=== PATIENT | male | born 1980 | race Caucasian/White ===

== ENCOUNTER 2016-07-05 11:19 | Inpatient (IN) | payer SELFPAY ==
--- NOTE | 2016-07-05 11:28 | C.PDOC ---
History Of Present Illness 35-year-old male, presents to the emergency department with complaints of suicidal ideation. Patient states he is having "negative thoughts." States his plan is to over dose "on Heroin or pills." Patient states he uses Heroin(last use this morning), Cocaine, PCP(last use two weeks ago) and alcohol (last drink this morning). Patient notes he has a Hx of suicide attempt in the past (two years ago). Currently denies any physical complaints. No chest pain, headache, vomiting, or any other associated symptoms. Time Seen by Provider: 07/05/16 11:27 Chief Complaint (Nursing): Psychiatric Evaluation Past Medical History Reviewed: Historical Data, Nursing Documentation, Vital Signs Vital Signs: Last Vital Signs Temp 98.1 F 07/05/16 18:23 Pulse 84 07/05/16 18:23 Resp 20 07/05/16 18:23 BP 128/68 07/05/16 18:23 Pulse Ox 98 07/05/16 18:23 Family History: States: No Known Family Hx - Social History Hx Alcohol Use: Yes Hx Substance Use: Yes (heroin) - Immunization History Hx Tetanus Toxoid Vaccination: No (2016) Hx Influenza Vaccination: No Hx Pneumococcal Vaccination: No Review Of Systems Except As Marked, All Systems Reviewed And Found Negative. Constitutional: Negative for: Fever, Chills Cardiovascular: Negative for: Chest Pain Gastrointestinal: Negative for: Nausea, Vomiting Neurological: Negative for: Weakness, Numbness Psych: Positive for: Suicidal ideation Physical Exam - Physical Exam Appears: Non-toxic, No Acute Distress, Other (FLAT AFFECT. NO SIGNS OR SYMPTOMS OF ACUTE INTOX/WITHDRAWAL. PT CALM AND COOPERATIVE.) Skin: Warm, Dry, No Rash Head: Atraumatic Eye(s): bilateral: Normal Inspection Nose: Normal Oral Mucosa: Moist Lips: Normal Appearing Neck: Normal ROM Chest: Symmetrical Respiratory: No Accessory Muscle Use Extremity: Normal ROM Neurological/Psych: Oriented x3 ED Course And Treatment - Laboratory Results Result Diagrams: 07/05/16 12:24 07/05/16 12:24 O2 Sat by Pulse Oximetry: 97 Progress - Data Reviewed Data Reviewed: Lab, Diagnostic imaging, EKG, Old records ED OBSERVATION Date of observation admission: 07/05/16 Time of observation admission: 11:25 - Observation admission statement Patient is being placed in observation because:: SUICIDAL IDEATION HO DRUG ABUSE - Goals of Observation Goals of observation are:: SOBRIETY MED CLEAR PSYCH EVAL - Progress Note Progress Note: 07/05/16 11:28 D/W CRISIS RUTH 07/05/16 13:12 MED CLEAR FOR PSYCH EVAL. CRISIS NOTIFIED 07/05/16 14:30 Disposition Counseled Patient/Family Regarding: Studies Performed, Diagnosis - Disposition Disposition: HOSPITALIZED Disposition Time: 17:30 Condition: STABLE - Clinical Impression Clinical Impression: Depression, Drug abuse - Scribe Statement The provider has reviewed the documentation as recorded by the Scribdeidra Bocanegra All medical record entries made by the Scribe were at my direction and personally dictated by me. I have reviewed the chart and agree that the record accurately reflects my personal performance of the history, physical exam, medical decision making, and the department course for this patient. I have also personally directed, reviewed, and agree with the discharge instructions and disposition. Decision To Admit - Pt Status Changed To: Hospital Disposition Of: Inpatient - Admit Certification Admit to Inpatient:: After my assessment, the patient will require hospitalization for at least two midnights. This is because of the severity of symptoms shown, intensity of services needed, and/or the medical risk in this patient being treated as an outpatient. - InPatient: Physician Admission Certification: I certify that this patient requires 2 or more midnights of care for the following reason:: SEE NOTE - . Bed Request Type: Psychiatry Admitting Physician: Vinny Centeno Patient Diagnosis: Depression, Drug abuse
[2016-07-05 12:37] LABS: BASO % 0.9 % (0.0-2.0); EOS # 0.1 K/uL (0.0-0.7); EOS % 1.7 % (0.0-4.0); LYMPH # 1.1 K/uL (1.0-4.3); LYMPH % 22.5 % (20.0-40.0); MEAN CELL VOLUME 89.7 fL (80.0-94.0); MEAN CORPUSCULAR HEMOGLOBIN 30.9 pg (27.0-31.0); MEAN CORPUSCULAR HGB CONC 34.4 g/dL (33.0-37.0); MEAN PLATELET VOLUME 8.1 fL (7.2-11.7); MONO # 0.3 K/uL (0.0-0.8); MONO % 7.1 % (0.0-10.0); NRBC % 0.1 % (0.0-2.0); RED CELL DISTRIBUTION WIDTH 12.7 % (11.5-14.5); WHITE BLOOD COUNT 4.9 K/uL (4.8-10.8)
[2016-07-05 12:40] LABS: RBC URINE < 1 /hpf (0-3); URINE BILIRUBIN NEGATIVE (NEGATIVE); URINE BLOOD NEGATIVE (NEGATIVE); URINE COLOR Yellow (YELLOW); URINE GLUCOSE (UA) NORMAL (Normal); URINE KETONE NEGATIVE (NEGATIVE); URINE LEUKOCYTE ESTERASE NEG Leu/uL (Negative); URINE PROTEIN NEGATIVE (NEGATIVE); URINE UROBILINOGEN NORMAL mg/dL (0.2-1.0)
[2016-07-05 12:48] LABS: CHLORIDE 100 mmol/L (98-107); POTASSIUM 3.9 mmol/L (3.6-5.2); SODIUM 140 mmol/L (132-148)
[2016-07-05 12:50] LABS: GFR AFRICAN-AMERICAN > 60
[2016-07-05 12:51] LABS: ALKALINE PHOSPHATASE 61 U/L (38-126); ALT/SGPT 81 U/L (21-72); AST/SGOT 46 U/L (17-59); BILIRUBIN,TOTAL 0.6 mg/dL (0.2-1.3); BLOOD UREA NITROGEN 17 mg/dL (9-20); CALCIUM 8.8 mg/dl (8.6-10.4); CARBON DIOXIDE 30 mmol/L (22-30); GLUCOSE,RANDOM 108 mg/dL (75-110); TOTAL PROTEIN 7.7 g/dL (6.3-8.3)
[2016-07-05 12:52] LABS: ALCOHOL SERUM < 10 mg/dl (0-10)
[2016-07-05 18:41] VITALS: O2SAT 97
[2016-07-06] MEDS ORDERED: Aluminum Hydroxide/Magnesium Hydroxide Susp (30 mL) PO PRN (06:18)
[2016-07-06] MEDS: Multiple Vitamins Tab PO SCH (13:20)
--- NOTE | 2016-07-06 15:33 | PCM.PSYCH ---
Initial Psychiatric Evaluation - Initial Psychiatric Evaluation Type of Admission: Voluntary Legal Status: Capacity Chief Complaint (in patient's own words): "I don't feel so good." History of Present Illness and Precipitating Events: The patient is a 35yo male who is unemployed, homeless, and single with no children. He states that he shoots 2 bundles of heroin a day for the past 20 years. He also states that he shoots cocaine, smokes a pack of cigarettes a day, and drinks a 1 pint of alcohol a day for the past 20 years. He denies the use of marijuana and other drugs. He denies delirium tremens but states he has experienced blackouts and seizures in the past. He says that his longest sobriety was when he was in custodial for 5 years. He states that he is depressed and has had a previous suicide attempt. He complains of constant anxiety and auditory hallucinations at times. He reports several depressive sxs. He claims he was suicidal but no longer. Contracts for safety. Past medical history: denies Past psych history: Suicide attempt and 3 admissions in psych Family psych history: denies Family substance abuse: denies Current Medications: Active Medications Generic Name Dose Route Start Last Admin Trade Name Freq PRN Reason Stop Dose Admin Al Hydrox/Mg Hydrox/Simethicone 30 ml 07/06/16 06:18 Maalox 30 Ml PO Q6 PRN Indigestion / Heartburn Clonidine HCl 0.1 mg 07/06/16 11:54 Catapres PO Q4H PRN Symptoms of alcohol withdrawl Folic Acid 1 mg 07/06/16 12:00 07/06/16 13:20 Folic Acid PO 1 mg DAILY ALYSE Administration Gabapentin 300 mg 07/06/16 12:00 07/06/16 13:20 Neurontin PO 300 mg BID ALYSE Administration Hydroxyzine HCl 25 mg 07/06/16 06:18 Atarax PO Q6 PRN Anxiety Lorazepam 1 mg 07/06/16 11:55 Ativan PO Q8H PRN Agitation Methadone HCl 10 mg 07/07/16 10:00 Methadone PO 07/10/16 09:59 Q24H ALYSE Taper Mirtazapine 15 mg 07/06/16 22:00 Remeron PO HS ALYSE Multivitamins 1 tab 07/06/16 12:00 07/06/16 13:20 Hexavitamin PO 1 tab DAILY ALYSE Administration Nicotine 1 patch 07/06/16 12:00 07/06/16 13:20 Nicoderm Cq TD 1 patch DAILY ALYSE Administration Thiamine HCl 100 mg 07/06/16 12:00 07/06/16 13:20 Vitamin B1 Tab PO 100 mg DAILY ALYSE Administration Trazodone HCl 50 mg 07/06/16 06:18 Desyrel PO HS PRN Sleep Past Psychiatric History - Past Psychiatric History Previous Treatment History: None Pertinent Medical Hx (Current Medical&Sleep Prob, Allergies): Allergies Allergy/AdvReac Type Severity Reaction Status Date / Time No Known Allergies Allergy Verified 07/05/16 11:24 No Known Home Med 07/05/16 Review of Systems - Psychiatric Psychiatric: Anxiety, Auditory Hallucinations, Depression, Difficulty Concentrating. absent: Homicidal Ideation, Suicidal Ideation Mental Status Examination - Personal Presentation Personal Presentation: Looks stated age - Affect Affect: Constricted - Motor Activity Motor Activity: Calm - Reliability in Providing Information Reliability in Providing Information: Fair - Speech Speech: Organized - Mood Mood: Depressed, Anxious - Formal Thought Process Formal Thought Process: No Impairment - Hallucinations/Delusions Hallucinations: Auditory - Cognitive Functions Orientation: Person, Place, Situation, Time Attention/Concentration: Easily distracted Estimate of Intelligence: Below average Judgement: Intact, as evidence by: Insight regarding need for hospitalization Memory: Recent intact, as evidence by: Ability to recall events of the day, Remote intact, as evidenced by: Abilit to recall sig. life events - Risk Risk: Withdrawal, Diminished functioning - Strength & Assets Inventory Strength & Assets Inventory: Cooperative - Limitations Limitations: Living alone DSM 5 DX - DSM 5 DSM 5 Diagnosis: Depressive Disorder Unspecified Opioid Use Disorder- severe Opioid Withdrawal Disorder- severe Anxiety Disorder Unspecified Tobacco Use Disorder Alcohol Use Disorder-severe - Recommended/Plan of Treatment Treatment Recommendations and Plan of Treatment: Opioid Use Disorder/Withdrawal: Methadone detox, Support and psychoeducation, Attend groups and activities daily, After care planning by SW (rehab preferred by the pt) Depressive Disorder Unspecified: Remeron, support and psychoed, CBT Anxiety Disorder Unspecified: Gabapentin, CBT, siupport, relaxation skills Tobacco Use Disorder: Nicotine patch, DE for abstinence Alcohol Use Disorder: prn meds, monitor sxs, DE for abstinence 33 min Projected ELOS: 5 days Prognosis: good with treatment - Smoking Cessation Smoking Cessation Initiated: Yes
[2016-07-07] MEDS: Multiple Vitamins Tab PO SCH (10:30)
[2016-07-07 11:08] VITALS: BP 123/79; PULSE 89; RESP 20; TEMP 97.6
--- NOTE | 2016-07-07 14:45 | PCM.PYCHPN ---
Psychiatric Progress Note - Psychiatric Progress Note Patient seen today, length of contact: 17min Patient Chief Complaint: "I feel weak." Problems Identified/Issues Discussed: The pt is seen, chart reviewed, case discussed with staff. The patient complains of feeling weak and not being able to sleep. He states that the Methadone is not enough for his withdrawal symptoms and that the Ramarol made him feel jumpy. He states that his plan is to go to an outpatient program possibly in [place] where he has Medicaid. The pt is compliant with medications. Symptoms are improving but needs more time to stabilize. After care discussed, support and psychoeducation given. Mental Status Examination - Cognitive Function Orientation: Person, Place, Situation, Time Attention: WNL Concentration: WNL Association: WNL - Mood Mood: Depressed, Anxious - Affect Affect: Constricted - Speech Speech: Soft - Formal Thought Process Formal Thought Process: No Impairment - Homicidal Ideation Homicidal Ideation: No Goal/Treatment Plan - Goal/Treatment Plan Progress Toward Problem(s) and Goals/Treatment Plan: Continue medications Support and psychoeducation daily Attend groups and activities daily After care planning by RIO 17 min
--- NOTE | 2016-07-07 15:03 | PCM.PYCHDC ---
Mental Status Examination - Mental Status Examination Orientation: Person, Place, Situation, Time Memory: Impaired Mood: Anxious Affect: Constricted Speech: Appropriate Attention: Poor Concentration: Poor Association: WNL Fund of Knowledge: Poor Formal Thought Process: No Impairment Suicidal Ideation: No Current Homicidal Ideation?: No Discharge Summary - Discharge Note Reason for Hospitalization: Depression SI opioid detox Consultations:: List each consultation separately and include: 1. Reason for request. 2. Findings. 3. Follow-up Summary of Hospital Course include:: 1. Description of specific treatment plan utilized for patients during their course of treatmen. 2. Summarize the time- course for resolution of acute symptoms and/or regressed behaviors. 3. Describe issues identified and worked on during hospitalization. 4. Describe medication utilized. 5. Describe medical problems identified and treated. 6. Reassessment of suicide risk Summary of Hospital Course: On admission: The patient is a 35yo male who is unemployed, homeless, and single with no children. He states that he shoots 2 bundles of heroin a day for the past 20 years. He also states that he shoots cocaine, smokes a pack of cigarettes a day, and drinks a 1 pint of alcohol a day for the past 20 years. He denies the use of marijuana and other drugs. He denies delirium tremens but states he has experienced blackouts and seizures in the past. He says that his longest sobriety was when he was in long-term for 5 years. He states that he is depressed and has had a previous suicide attempt. He complains of constant anxiety and auditory hallucinations at times. He reports several depressive sxs. He claims he was suicidal but no longer. Contracts for safety. Hospital course: The pt was admitted and started on treatment with psychotherapy, support, psychoeducation and medications. MA and CBT used. He was uncooperative and unmotivated. All the risks and benefits of medications are discussed and the patient understood and agreed. After care discussed with the patient. He was interested in rehab but today, out of the blue, he demanded to leave AMA. He claimed it was about his "family" but did not elaborate. Risks of leaving early, incl. relapse, OD and even discussed but he still left. He even threatened that he would "break things here" if he were not let go. - Final Diagnosis (DSM 5) Condition upon Discharge: IMPROVED DSM 5: Depressive Disorder Unspecified Opioid Use Disorder- severe Opioid Withdrawal Disorder- severe Anxiety Disorder Unspecified Tobacco Use Disorder Alcohol Use Disorder-severe r/o Antisocial pers d/o Disposition: AGAINST MEDICAL ADVICE Follow-up Treatment Plan: Use relapse prevention skills Return to ER or call 911 if suicidal, homicidal or symptoms relapse. Stay away from stress, alcohol and drugs. See primary doctor once a year. - Smoking Cessation Smoking Cessation Medication prescribed: No - Antipsychotic Medications Pt discharged on 2 or more routine antipsychotic medications: No
== END 2016-07-07 15:16 | disposition left against medical advice (07) | DRG 894 ==
LOC: C.ER 11:19 → C.9OBSV 11:30 → OBSVTOIN 17:30 → C.5E 17:30
PROC: HZ2ZZZZ Detoxification Services for Substance Abuse Treatment (ICD-10-PCS; principal; 2016-07-05)
PROC: HZ81ZZZ Medication Management for Substance Abuse Treatment, Methadone Maintenance (ICD-10-PCS; 2016-07-05)
PROC: HZ52ZZZ Individual Psychotherapy for Substance Abuse Treatment, Cognitive-Behavioral (ICD-10-PCS; 2016-07-05)
PROC: HZ59ZZZ Individual Psychotherapy for Substance Abuse Treatment, Supportive (ICD-10-PCS; 2016-07-05)
PROC: HZ56ZZZ Individual Psychotherapy for Substance Abuse Treatment, Psychoeducation (ICD-10-PCS; 2016-07-05)
DX: F11.23 Opioid dependence with withdrawal (principal); F32.9 Major depressive disorder, single episode, unspecified; F10.99 Alcohol use, unspecified with unspecified alcohol-induced disorder; F17.210 Nicotine dependence, cigarettes, uncomplicated; F41.9 Anxiety disorder, unspecified; R45.851 Suicidal ideations; Z59.0 Homelessness; Z91.5 Personal history of self-harm

== ENCOUNTER 2017-05-12 15:08 | Inpatient (IN) | payer MEDICAID, OTHER ==
--- NOTE | 2017-05-12 15:45 | C.PDOC ---
History Of Present Illness 36yo male, presents to ED stating he feels depressed. Patient also reports he has sucidial ideation but without plan. He denies any homicidal ideation, hallucinations. Patient also denies any fever, chills, chest pain, shortness of breath, abdominal pain, nausea or vomiting. No other complaints. Time Seen by Provider: 05/12/17 15:37 Chief Complaint (Nursing): Psychiatric Evaluation History Per: Patient History/Exam Limitations: no limitations Associated Symptoms: Depression, Suicidal Thoughts. denies: Suicidal Plan Past Medical History Reviewed: Historical Data, Nursing Documentation, Vital Signs Vital Signs: Last Vital Signs Temp 98.3 F 05/12/17 17:32 Pulse 62 05/12/17 17:32 Resp 18 05/12/17 17:32 BP 100/64 05/12/17 17:32 Pulse Ox 96 05/12/17 17:32 - Medical History PMH: Denies: Diabetes, Hepatitis, HIV, HTN, Seizures, Sexually Transmitted Disease Surgical History: No Surg Hx - [facility] Procedures DETOXIFICATION SERVICES FOR SUBSTANCE ABUSE TREATMENT (07/05/16) INDIV PSYCHOTHERAPY FOR SUBSTANCE ABUSE TREATMENT, SUPPORT (07/05/16) INDIV PSYCHOTHERAPY FOR SUBSTANCE ABUSE, COGNITIV BEHAVIORAL (07/05/16) INDIV PSYCHOTHERAPY FOR SUBSTANCE ABUSE, PSYCHOEDUCATION (07/05/16) MEDS MGMT FOR SUBSTANCE ABUSE TREATMENT, METHADONE MAINT (07/05/16) Family History: States: Unknown Family Hx - Social History Hx Alcohol Use: Yes Hx Substance Use: Yes (methadone) - Immunization History Hx Tetanus Toxoid Vaccination: No (2015) Hx Influenza Vaccination: No Hx Pneumococcal Vaccination: No Review Of Systems Except As Marked, All Systems Reviewed And Found Negative. Constitutional: Negative for: Fever Cardiovascular: Negative for: Chest Pain Physical Exam - Physical Exam Additional Physical Exam Comments: Constitutional: No acute distress. Head: Normocephalic. Atraumatic. Eyes: PERRL. ENT: Moist mucous membranes. Neck: Supple. Cardiovascular: Regular rate. Radial pulse 2+ bilaterally. Chest: No tenderness. Respiratory: Clear to auscultation bilaterally. GI: Soft. Nontender. Nondistended. Back: No CVA tenderness. Musculoskeletal: No tenderness or swelling of extremities. Skin: No rash. Neurologic: Alert, no focal deficit. ED Course And Treatment - Laboratory Results Result Diagrams: 05/12/17 15:55 05/12/17 15:55 O2 Sat by Pulse Oximetry: 99 Medical Decision Making Medical Decision Making: Impression: Suicidal ideation, depression Plan: -- Labs -- Urinalysis Disposition Discussed With : Johnathan Westbrook - Disposition Disposition: HOSPITALIZED Disposition Time: 17:12 Condition: STABLE Forms: [facility] (Greek) - Clinical Impression Clinical Impression: Major depressive disorder, recurrent, unspecified, Opioid use disorder, severe , dependence - Scribe Statement The provider has reviewed the documentation as recorded by the Scribe (Elizabeth Pinto) Provider Attestation: All medical record entries made by the Scribe were at my direction and personally dictated by me. I have reviewed the chart and agree that the record accurately reflects my personal performance of the history, physical exam, medical decision making, and the department course for this patient. I have also personally directed, reviewed, and agree with the discharge instructions and disposition.
[2017-05-12 15:58] LABS: BASO # 0.1 K/uL (0.0-0.2); BASO % 1.3 % (0.0-2.0); EOS # 0.3 K/uL (0.0-0.7); EOS % 4.8 % (0.0-4.0); HEMOGLOBIN 13.5 g/dL (12.0-18.0); LYMPH # 1.4 K/uL (1.0-4.3); LYMPH % 26.1 % (20.0-40.0); MEAN CELL VOLUME 90.4 fL (80.0-94.0); MEAN CORPUSCULAR HEMOGLOBIN 30.8 pg (27.0-31.0); MEAN CORPUSCULAR HGB CONC 34.1 g/dL (33.0-37.0); MEAN PLATELET VOLUME 8.1 fL (7.2-11.7); MONO # 0.5 K/uL (0.0-0.8); MONO % 9.7 % (0.0-10.0); NEUT # 3.1 K/uL (1.8-7.0); NEUT % 58.1 % (50.0-75.0); NRBC % 0.1 % (0.0-2.0); RBC 4.39 Mil/uL (4.40-5.90); RED CELL DISTRIBUTION WIDTH 12.9 % (11.5-14.5); WHITE BLOOD COUNT 5.3 K/uL (4.8-10.8)
[2017-05-12 16:36] LABS: ALBUMIN 3.8 g/dL (3.5-5.0); ALT/SGPT 39 U/L (21-72); AST/SGOT 27 U/L (17-59); BLOOD UREA NITROGEN 10 mg/dL (9-20); CALCIUM 8.9 mg/dl (8.6-10.4); GFR AFRICAN-AMERICAN > 60; GFR NON-AFRICAN AMERICAN > 60
[2017-05-12 16:49] LABS: URINE BILIRUBIN NEGATIVE (NEGATIVE); URINE BLOOD NEGATIVE (NEGATIVE); URINE CLARITY Clear (Clear); URINE COLOR Yellow (YELLOW); URINE GLUCOSE (UA) NORMAL (Normal); URINE LEUKOCYTE ESTERASE NEG Leu/uL (Negative); URINE PROTEIN NEGATIVE (NEGATIVE)
[2017-05-12 17:03] LABS: BARBITURATES, UR NEGATIVE (NEGATIVE); BENZODIAZEPINES, UR NEGATIVE (NEGATIVE)
[2017-05-12 17:10] LABS: OPIATES, UR POSITIVE (NEGATIVE); PHENCYCLIDINE, UR POSITIVE (NEGATIVE)
--- NOTE | 2017-05-12 19:41 | PCM.BM ---
<Carleen Carbajal - Last Filed: 05/12/17 19:38> Treatment Plan Problems - Problems identified on initial assessmt Depression Date Initiated: 05/12/17 Time Initiated: 19:05 Assessment reference: NA Status: Active Treatment assets and liabiliti Patient Assests: cooperative, insightful, self-reliant, ADL independent, physically healthy, good support system, negotiates basic needs, cognitively intact Patient Liabilities: financial problems (Lost his job.), substance abuse ( methadone, cocaine and heroin), legal issue (Probation ) - Milieu Protocol Maintain good personal hygiene: daily Encourage regular showers, every shift Remind patient to perform daily oral care, every shift Assist patient to perform ADL's Conduct patient checks and document Observation sheet: Q15 minutes (for safety) Maintain personal safety: every shift Educate patient to report safety concerns to staff, every shift Monitor environment for contraband/sharps Medication safety: Monitor for expected outcome, potential side effects: every shift, Assess barriers to learning: every shift, Assess readiness for medication education: every shift <Shawna Alvarado - Last Filed: 05/13/17 10:55> Family Contact Family involvement: Famliy/SO not involved - Goals for Treatment Patient goals for treatment: "I want to go back to work." Discharge/Continuing Care - Education Needs Education Needs: Patient Medication, Patient Coping Skills - Discharge Discharge Criteria: Tolerates medication w/o severe side effects, No longer exhibiting s/s of withdrawal, Reduction of target symptoms Discharge to:: Home - Treatment Team Participation Discussed with Family/SO: No Was Patient/Family/SO present at Treatment Team Meeting: Yes <Cristy Salgado - Last Filed: 05/14/17 16:34> - Diagnosis (1) Major depressive disorder, recurrent, unspecified Status: Acute Interventions: 05/14/17 16:33 * Assess 7x/week regarding severity of withdrawal * Educate regarding risks, benefits, side effects and alternatives of medications * Use Motivational Interviewing for abstinence * Use CBT for relapse prevention * Medication management for withdrawal symptoms * Encourage medication assisted treatment * (2) Opioid use disorder, severe, dependence Status: Acute Interventions: 05/14/17 16:33 * Assess 7x/week regarding severity of withdrawal * Educate regarding risks, benefits, side effects and alternatives of medications * Use Motivational Interviewing for abstinence * Use CBT for relapse prevention * Medication management for withdrawal symptoms * Encourage medication assisted treatment *
[2017-05-12] MEDS ORDERED: Aluminum Hydroxide/Magnesium Hydroxide Susp (30 mL) PO PRN (21:48)
[2017-05-12] MEDS: QUEtiapine 50 mg XR Tab PO SCH (22:24)
--- NOTE | 2017-05-13 10:52 | PCM.PSYCH ---
Initial Psychiatric Evaluation - Initial Psychiatric Evaluation Type of Admission: Voluntary Legal Status: Capacity Chief Complaint (in patient's own words): "I need detox" History of Present Illness and Precipitating Events: The patient is a 36 y/o male who is recently unemployed from a ho job, stays with family on and off, and single with no children. He states that he used to shoot 2 bundles of heroin a day for the past 20 years. He also states that he shoots cocaine, smokes a pack of cigarettes a day , and drinks a 1 pint of alcohol a day for the past 20 years. He also used PCP recently. He denies the use of marijuana and other drugs. He denies delirium tremens but states he has experienced blackouts and seizures in the past. He says that his longest sobriety was when he was in assisted for 5 years. He states that he was depressed and has had a previous suicide attempt. He complains of constant anxiety. He reports several depressive sxs. He claims he is NOT suicidal or having manic/psychotic features. He goes to a methadone clinic ([facility]) and was on 55 mg/d (confirmed by ur nurse Lynsey) but he now wants to "get off everything" Risks discussed, 50 mg given, taper ordered. He agreed to consider suboxone or vivitrol Past medical history: denies Past psych history: Suicide attempt and 3-4 admissions in psych Family psych history: denies Family substance abuse: denies Current Medications: Active Medications Generic Name Dose Route Start Last Admin Trade Name Freq PRN Reason Stop Dose Admin Al Hydrox/Mg Hydrox/Simethicone 30 ml 05/12/17 21:48 Maalox 30 Ml PO TID PRN Indigestion / Heartburn Clonidine HCl 0.1 mg 05/12/17 21:48 Catapres PO Q8 PRN COWS Score More or Equal to 5 Diphenhydramine HCl 50 mg 05/12/17 22:30 05/12/17 22:37 Benadryl PO 50 mg HS PRN Administration Insomnia Hydroxyzine HCl 25 mg 05/12/17 21:48 Atarax PO Q6 PRN Anxiety Loperamide HCl 2 mg 05/12/17 21:48 Imodium PO Q8 PRN Diarrhea Methadone HCl 50 mg 05/13/17 11:00 Methadone PO DAILY ALYSE Ondansetron HCl 4 mg 05/12/17 21:48 Zofran Tab PO Q8 PRN Nausea/Vomiting Quetiapine Fumarate 50 mg 05/12/17 22:00 05/12/17 22:24 Seroquel Xr PO Not Given HS ALYSE Trazodone HCl 50 mg 05/12/17 22:00 05/12/17 22:24 Desyrel PO Not Given HS ALYSE Past Psychiatric History - Past Psychiatric History Previous Treatment History: Inpatient Pertinent Medical Hx (Current Medical&Sleep Prob, Allergies): Allergies Allergy/AdvReac Type Severity Reaction Status Date / Time No Known Allergies Allergy Verified 07/05/16 11:24 Methadone [Methadone HCl] 55 mg PO DAILY 05/12/17 Review of Systems - Neurological Neurological: UNREMARKABLE - Psychiatric Psychiatric: Abnormal Sleep Pattern, Anxiety, Irritability. absent: Homicidal Ideation, Paranoia, Suicidal Ideation Mental Status Examination - Personal Presentation Personal Presentation: Looks older than stated age - Affect Affect: Constricted - Motor Activity Motor Activity: Calm - Reliability in Providing Information Reliability in Providing Information: Good - Speech Speech: Organized - Mood Mood: Anxious - Formal Thought Process Formal Thought Process: No Impairment - Cognitive Functions Orientation: Person, Place, Situation, Time Sensorium: Alert Attention/Concentration: Attentive Estimate of Intelligence: Average Judgement: Intact, as evidence by: Insight regarding need for hospitalization Memory: Recent intact, as evidence by: Ability to recall events of the day, Remote intact, as evidenced by: Abilit to recall sig. life events - Risk Risk: Diminished functioning - Strength & Assets Inventory Strength & Assets Inventory: Cooperative - Limitations Limitations: Other DSM 5 DX - DSM 5 DSM 5 Diagnosis: Opioid withdrawal Opioid use d/o - severe PCP use d/o Cocaine use d/o - severe CRUZ - Recommended/Plan of Treatment Treatment Recommendations and Plan of Treatment: Methadone detox Lexapro, Seroquel As needed medications Gabapentin for augmentation if needed All risks, benefits and alternatives of medications, including no medications, discussed and the patient understood and agreed. Attend groups and activities Supportive therapy and psychoeducation CT for abstinence CBT for relapse prevention Encourage MAT Refer to rehab or IOP Attend self-help groups as well CT for smoking cessation and patch if needed 34 min Projected ELOS: 5-6 days Prognosis: good w treatment - Smoking Cessation Smoking Cessation Initiated: Yes
[2017-05-13] MEDS: QUEtiapine 50 mg XR Tab PO SCH (21:37)
[2017-05-14 06:33] VITALS: O2SAT 94
--- NOTE | 2017-05-14 17:51 | PCM.PYCHPN ---
Psychiatric Progress Note - Psychiatric Progress Note Patient seen today, length of contact: 15 minutes Patient Chief Complaint: I'm feeling better Problems Identified/Issues Discussed: Patient seen, chart reviewed, case discussed with the staff. Issues related to illness and treatment were discussed with the patient and staff. Reported compliant with treatment with no adverse affects. Tolerating treatment very well. Patient reported feeling better. Patient was calm and cooperative at the time of evaluation. Patient is improving with treatment but needs more time. Aftercare discussed with the patient. At the time of evaluation, patient was awake alert oriented 3, no delusions, no auditory visual hallucinations, no suicidal ideations or homicidal ideations. Medical Problems: None reported Diagnostic Results: Reviewed DSM 5 Symptoms Update: Some improvement with treatment Medication Change: No Medical Record Reviewed: Yes Mental Status Examination - Cognitive Function Orientation: Person, Place, Situation, Time Memory: Intact Attention: WNL Concentration: WNL Association: WNL Fund of Knowledge: [facility] Decription of patient's judgement and insights: Fair - Mood Mood: Anxious - Affect Affect: Other (Appropriate) - Speech Speech: Appropriate - Formal Thought Process Formal Thought Process: No Impairment Psychotic Thoughts and Behaviors: None - Suicidal Ideation Suicidal Ideation: No - Homicidal Ideation Homicidal Ideation: No Goal/Treatment Plan - Goal/Treatment Plan Need for Continued Stay: Remain at risks for inpatient hospitalization, Discharge may exacerbated symptoms, Severe functional impairment Progress Toward Problem(s) and Goals/Treatment Plan: Patient education Supportive therapy CBT for relapse prevention [place] for abstinence Continue treatment as before Estimated Date of D/C: 05/21/17 - Smoking Cessation Smoking Cessation Initiated: No
[2017-05-14] MEDS: QUEtiapine 50 mg XR Tab PO SCH (21:34)
--- NOTE | 2017-05-15 14:21 | PCM.PYCHPN ---
Psychiatric Progress Note - Psychiatric Progress Note Patient seen today, length of contact: 15 minutes Patient Chief Complaint: I'm feeling better. Problems Identified/Issues Discussed: Patient seen, chart reviewed, case discussed with the staff. Issues related to illness and treatment were discussed with the patient and staff. Reported compliant with treatment with no adverse affects. Tolerating treatment very well. Patient reported feeling better. Patient was asking for Vivitrol shot. Education provided. Patient was calm and cooperative at the time of evaluation. Patient is improving with treatment but needs more time. Aftercare discussed with the patient. At the time of evaluation, patient was awake alert oriented 3, no delusions, no auditory visual hallucinations, no suicidal ideations or homicidal ideations. Medical Problems: None reported Diagnostic Results: Reviewed DSM 5 Symptoms Update: Improving with treatment Medication Change: No Medical Record Reviewed: Yes Mental Status Examination - Cognitive Function Orientation: Person, Place, Situation, Time Memory: Intact Attention: WNL Concentration: WNL Association: WNL Fund of Knowledge: WNL Decription of patient's judgement and insights: Fair - Mood Mood: Anxious (Much less than before) - Affect Affect: Other (Appropriate) - Speech Speech: Appropriate - Formal Thought Process Formal Thought Process: No Impairment Psychotic Thoughts and Behaviors: None - Suicidal Ideation Suicidal Ideation: No - Homicidal Ideation Homicidal Ideation: No Goal/Treatment Plan - Goal/Treatment Plan Need for Continued Stay: Remain at risks for inpatient hospitalization, Discharge may exacerbated symptoms, Severe functional impairment Progress Toward Problem(s) and Goals/Treatment Plan: Patient education Supportive therapy CBT for relapse prevention [place] for abstinence Continue treatment as before Estimated Date of D/C: 05/21/17 - Smoking Cessation Smoking Cessation Initiated: No
[2017-05-15] MEDS ORDERED: Bisacodyl 5mg EC Tab PO ONE (15:54)
[2017-05-15] MEDS ORDERED: Bisacodyl 5mg EC Tab PO PRN (15:55)
[2017-05-15] MEDS: Bisacodyl 5mg EC Tab PO SCH (16:38)
[2017-05-15] MEDS: QUEtiapine 50 mg XR Tab PO SCH (21:17)
[2017-05-16] MEDS ORDERED: Bisacodyl 5mg EC Tab PO SCH (10:00)
[2017-05-16] MEDS: Bisacodyl 5mg EC Tab PO SCH (10:07)
--- NOTE | 2017-05-16 12:51 | PCM.PYCHPN ---
Psychiatric Progress Note - Psychiatric Progress Note Patient seen today, length of contact: 15 minutes Patient Chief Complaint: "I need to stop methadone, still depressed" Problems Identified/Issues Discussed: The pt is seen, chart reviewed, case discussed with staff. Support given, CBT and [place] used briefly No new symptoms reported, improving slowly and needs more time No SEs from medications, risks discussed. After care discussed - he now wants Vivitrol in CRC. Medication Change: Yes Medical Record Reviewed: Yes Mental Status Examination - Cognitive Function Orientation: Person, Place, Situation, Time Memory: Intact Attention: WNL Concentration: WNL Association: WNL Fund of Knowledge: WNL - Mood Mood: Anxious (Much less than before) - Affect Affect: Other (Appropriate) - Speech Speech: Appropriate - Formal Thought Process Formal Thought Process: No Impairment - Suicidal Ideation Suicidal Ideation: No - Homicidal Ideation Homicidal Ideation: No Goal/Treatment Plan - Goal/Treatment Plan Need for Continued Stay: Discharge may exacerbated symptoms, Severe functional impairment Progress Toward Problem(s) and Goals/Treatment Plan: Methadone detox Lexapro, Seroquel As needed medications Gabapentin for augmentation if needed All risks, benefits and alternatives of medications, including no medications, discussed and the patient understood and agreed. Attend groups and activities Supportive therapy and psychoeducation [place] for abstinence CBT for relapse prevention Encourage MAT Refer to rehab or IOP Attend self-help groups as well [place] for smoking cessation and patch if needed Estimated Date of D/C: 05/21/17
[2017-05-16] MEDS: QUEtiapine 50 mg XR Tab PO SCH (21:07)
[2017-05-17] MEDS: Bisacodyl 5mg EC Tab PO SCH (09:14)
--- NOTE | 2017-05-17 20:44 | PCM.PYCHPN ---
Psychiatric Progress Note - Psychiatric Progress Note Patient seen today, length of contact: 16 min Patient Chief Complaint: "I am OK" Problems Identified/Issues Discussed: The pt is seen, chart reviewed, case discussed with staff. The pt is compliant with medications and reports no side-effects. Symptoms are improving but needs more time to stabilize. After care discussed, support and psychoeducation given. Medication Change: Yes Medical Record Reviewed: Yes Mental Status Examination - Cognitive Function Orientation: Person, Place, Situation, Time Memory: Intact Attention: WNL Concentration: WNL Association: WNL Fund of Knowledge: WNL - Mood Mood: Anxious (Much less than before) - Affect Affect: Other (Appropriate) - Speech Speech: Appropriate - Formal Thought Process Formal Thought Process: No Impairment - Suicidal Ideation Suicidal Ideation: No - Homicidal Ideation Homicidal Ideation: No Goal/Treatment Plan - Goal/Treatment Plan Need for Continued Stay: Discharge may exacerbated symptoms, Severe functional impairment Progress Toward Problem(s) and Goals/Treatment Plan: Methadone detox Lexapro, Seroquel As needed medications Gabapentin for augmentation if needed All risks, benefits and alternatives of medications, including no medications, discussed and the patient understood and agreed. Attend groups and activities Supportive therapy and psychoeducation [place] for abstinence CBT for relapse prevention Encourage MAT Refer to rehab or IOP Attend self-help groups as well [place] for smoking cessation and patch if needed Estimated Date of D/C: 05/21/17
[2017-05-17] MEDS: QUEtiapine 50 mg XR Tab PO SCH (22:50)
[2017-05-18] MEDS: Bisacodyl 5mg EC Tab PO SCH ×2 (10:03→10:09)
--- NOTE | 2017-05-18 13:49 | PCM.PYCHPN ---
Psychiatric Progress Note - Psychiatric Progress Note Patient seen today, length of contact: 16 min Patient Chief Complaint: "Better" Problems Identified/Issues Discussed: Seen, chart reviewed, case discussed No new issues Detox is going OK, no breakthru sxs After care discussed [place] and CBT used Still has some depressive sxs but not SI Medication Change: Yes (detox changes daily) Medical Record Reviewed: Yes Mental Status Examination - Cognitive Function Orientation: Person, Place, Situation, Time Memory: Intact Attention: WNL Concentration: WNL Association: WNL Fund of Knowledge: WNL - Mood Mood: Anxious (Much less than before) - Affect Affect: Other (Appropriate) - Speech Speech: Appropriate - Formal Thought Process Formal Thought Process: No Impairment - Suicidal Ideation Suicidal Ideation: No - Homicidal Ideation Homicidal Ideation: No Goal/Treatment Plan - Goal/Treatment Plan Need for Continued Stay: Discharge may exacerbated symptoms, Severe functional impairment Progress Toward Problem(s) and Goals/Treatment Plan: Methadone detox Lexapro, Seroquel As needed medications Gabapentin for augmentation if needed All risks, benefits and alternatives of medications, including no medications, discussed and the patient understood and agreed. Attend groups and activities Supportive therapy and psychoeducation [place] for abstinence CBT for relapse prevention Encourage MAT Refer to rehab or IOP Attend self-help groups as well [place] for smoking cessation and patch if needed Estimated Date of D/C: 05/21/17
[2017-05-18] MEDS: QUEtiapine 50 mg XR Tab PO SCH (21:41)
[2017-05-19] MEDS: Bisacodyl 5mg EC Tab PO SCH (09:15)
--- NOTE | 2017-05-19 18:01 | PCM.PYCHPN ---
Psychiatric Progress Note - Psychiatric Progress Note Patient seen today, length of contact: 16 min Patient Chief Complaint: "I'm OK" Problems Identified/Issues Discussed: Seen, chart reviewed, case discussed He asked to leave early and is told to put in a 48 hr if needed Detox is going OK, no breakthru sxs. It will end tomorrow - he came a long way from 55 mg! After care discussed - CRC for Vivitrol [place] and CBT used Still has some depressive sxs but not SI, no AVH Medication Change: Yes (detox changes daily) Medical Record Reviewed: Yes Mental Status Examination - Cognitive Function Orientation: Person, Place, Situation, Time Memory: Intact Attention: WNL Concentration: WNL Association: WNL Fund of Knowledge: WNL - Mood Mood: Anxious (Much less than before) - Affect Affect: Other (Appropriate) - Speech Speech: Appropriate - Formal Thought Process Formal Thought Process: No Impairment - Suicidal Ideation Suicidal Ideation: No - Homicidal Ideation Homicidal Ideation: No Goal/Treatment Plan - Goal/Treatment Plan Need for Continued Stay: Discharge may exacerbated symptoms, Severe functional impairment Progress Toward Problem(s) and Goals/Treatment Plan: Methadone detox ending tomorrow Lexapro, Seroquel As needed medications Gabapentin for augmentation if needed All risks, benefits and alternatives of medications, including no medications, discussed and the patient understood and agreed. Attend groups and activities Supportive therapy and psychoeducation [place] for abstinence CBT for relapse prevention Encourage MAT Refer to rehab or IOP Attend self-help groups as well [place] for smoking cessation and patch if needed Estimated Date of D/C: 05/21/17
[2017-05-19] MEDS: QUEtiapine 50 mg XR Tab PO SCH ×2 (21:12→22:32)
[2017-05-20 07:19] VITALS: RESP 18; TEMP 98.1
[2017-05-20 08:49] VITALS: BP 101/63; PULSE 62
--- NOTE | 2017-05-20 08:53 | PCM.PYCHDC ---
Mental Status Examination - Mental Status Examination Orientation: Person Discharge Summary - Discharge Note Consultations:: List each consultation separately and include: 1. Reason for request. 2. Findings. 3. Follow-up Summary of Hospital Course include:: 1. Description of specific treatment plan utilized for patients during their course of treatmen. 2. Summarize the time- course for resolution of acute symptoms and/or regressed behaviors. 3. Describe issues identified and worked on during hospitalization. 4. Describe medication utilized. 5. Describe medical problems identified and treated. 6. Reassessment of suicide risk Summary of Hospital Course: The patient is a 36 y/o male who is recently unemployed from a ho job, stays with family on and off, and single with no children. He states that he used to shoot 2 bundles of heroin a day for the past 20 years. He also states that he shoots cocaine, smokes a pack of cigarettes a day , and drinks a 1 pint of alcohol a day for the past 20 years. He also used PCP recently. He denies the use of marijuana and other drugs. He denies delirium tremens but states he has experienced blackouts and seizures in the past. He says that his longest sobriety was when he was in snf for 5 years. He states that he was depressed and has had a previous suicide attempt. He complains of constant anxiety. He reports several depressive sxs. He claims he is NOT suicidal or having manic/psychotic features. He goes to a methadone clinic ([facility]) and was on 55 mg/d (confirmed by ur nurse Lynsey) but he now wants to "get off everything" Risks discussed, 50 mg given, taper ordered. He agreed to consider suboxone or vivitrol Past medical history: denies Past psych history: Suicide attempt and 3-4 admissions in psych Family psych history: denies Family substance abuse: denies Pt will go to [facility] for Vivitrol injection in 2 weeks. Intake is next week. - Diagnosis (1) Major depressive disorder, recurrent, unspecified Current Visit: Yes Status: Acute (2) Opioid use disorder, severe, dependence Current Visit: Yes Status: Acute - Final Diagnosis (DSM 5) Condition upon Discharge: STABLE Disposition: HOME/ ROUTINE Follow-up Treatment Plan: Methadone detox ending tomorrow Lexapro, Seroquel As needed medications Gabapentin for augmentation if needed All risks, benefits and alternatives of medications, including no medications, discussed and the patient understood and agreed. Attend groups and activities Supportive therapy and psychoeducation [place] for abstinence CBT for relapse prevention Encourage MAT Refer to rehab or IOP Attend self-help groups as well [place] for smoking cessation and patch if needed Prescriptions/Medication Reconciliation: Escitalopram [Lexapro] 10 mg PO DAILY #30 tab QUEtiapine [Seroquel XR] 50 mg PO HS #30 ter
[2017-05-20] MEDS: Bisacodyl 5mg EC Tab PO SCH (09:52)
== END 2017-05-20 09:55 | disposition home or self-care (01) | DRG 430 ==
LOC: C.ER 15:08 → C.5E 17:45
PROVIDERS: ADMIT Psychiatry & Neurology Psychiatry; ATTEND Psychiatry & Neurology Psychiatry
PROC: GZHZZZZ Group Psychotherapy (ICD-10-PCS; principal; 2017-05-12)
PROC: HZ2ZZZZ Detoxification Services for Substance Abuse Treatment (ICD-10-PCS; 2017-05-12)
PROC: HZ52ZZZ Individual Psychotherapy for Substance Abuse Treatment, Cognitive-Behavioral (ICD-10-PCS; 2017-05-12)
PROC: HZ59ZZZ Individual Psychotherapy for Substance Abuse Treatment, Supportive (ICD-10-PCS; 2017-05-12)
PROC: HZ56ZZZ Individual Psychotherapy for Substance Abuse Treatment, Psychoeducation (ICD-10-PCS; 2017-05-12)
PROC: HZ42ZZZ Group Counseling for Substance Abuse Treatment, Cognitive-Behavioral (ICD-10-PCS; 2017-05-12)
PROC: HZ46ZZZ Group Counseling for Substance Abuse Treatment, Psychoeducation (ICD-10-PCS; 2017-05-12)
PROC: GZ58ZZZ Individual Psychotherapy, Cognitive-Behavioral (ICD-10-PCS; 2017-05-12)
PROC: GZ56ZZZ Individual Psychotherapy, Supportive (ICD-10-PCS; 2017-05-12)
DX: F33.9 Major depressive disorder, recurrent, unspecified (principal); F11.23 Opioid dependence with withdrawal; F16.10 Hallucinogen abuse, uncomplicated; F14.20 Cocaine dependence, uncomplicated; F41.1 Generalized anxiety disorder; F17.210 Nicotine dependence, cigarettes, uncomplicated; R45.851 Suicidal ideations; Z91.5 Personal history of self-harm

== ENCOUNTER 2017-08-03 14:24 | Inpatient (IN) | payer MEDICAID ==
[2017-08-03 15:06] VITALS: BMI 27.3
[2017-08-03 15:52] LABS: BASO % 0.5 % (0.0-2.0); EOS # 0.3 K/uL (0.0-0.7); EOS % 4.2 % (0.0-4.0); LYMPH # 1.2 K/uL (1.0-4.3); LYMPH % 18.7 % (20.0-40.0); MEAN CELL VOLUME 90.8 fL (80.0-94.0); MEAN CORPUSCULAR HEMOGLOBIN 31.2 pg (27.0-31.0); MEAN CORPUSCULAR HGB CONC 34.4 g/dL (33.0-37.0); MEAN PLATELET VOLUME 8.3 fL (7.2-11.7); MONO # 0.9 K/uL (0.0-0.8); MONO % 14.1 % (0.0-10.0); NEUT # 3.9 K/uL (1.8-7.0); NEUT % 62.5 % (50.0-75.0); RBC 3.65 Mil/uL (4.40-5.90); RED CELL DISTRIBUTION WIDTH 13.6 % (11.5-14.5); WHITE BLOOD COUNT 6.3 K/uL (4.8-10.8)
--- NOTE | 2017-08-03 15:53 | C.PDOC ---
History Of Present Illness 36 y/o male presents to ED for evaluation of depression and suicidal thoughts worsening for 5 days. Patient admits he used heroin daily and states he called mother who advised he come to ED for further evaluation. Patient now admits to having plan of overdosing and denies HI or any other complaints at this time. Time Seen by Provider: 08/03/17 15:15 Chief Complaint (Nursing): Psychiatric Evaluation History Per: Patient History/Exam Limitations: no limitations Onset/Duration Of Symptoms: Days Suicide/Self Injury Attempted (Context): None Past Medical History Reviewed: Historical Data, Nursing Documentation, Vital Signs Vital Signs: Last Vital Signs Temp 98.0 F 08/03/17 14:53 Pulse 54 L 08/03/17 14:53 Resp 20 08/03/17 14:53 BP 99/62 L 08/03/17 14:53 Pulse Ox 99 08/03/17 15:56 - Medical History PMH: Depression Surgical History: No Surg Hx - [facility] Procedures DETOXIFICATION SERVICES FOR SUBSTANCE ABUSE TREATMENT (05/12/17) GROUP BUSINESS OBJECTS FOR SUBSTANCE ABUSE TREATMENT, PSYCHOEDUCATION (05/12/17) GROUP BUSINESS OBJECTS FOR SUBSTANCE ABUSE, COGNITIVE BEHAVIORAL (05/12/17) GROUP PSYCHOTHERAPY (05/12/17) INDIV PSYCHOTHERAPY FOR SUBSTANCE ABUSE TREATMENT, SUPPORT (05/12/17) INDIV PSYCHOTHERAPY FOR SUBSTANCE ABUSE, COGNITIV BEHAVIORAL (05/12/17) INDIV PSYCHOTHERAPY FOR SUBSTANCE ABUSE, PSYCHOEDUCATION (05/12/17) INDIVIDUAL PSYCHOTHERAPY, COGNITIVE-BEHAVIORAL (05/12/17) INDIVIDUAL PSYCHOTHERAPY, SUPPORTIVE (05/12/17) MEDS MGMT FOR SUBSTANCE ABUSE TREATMENT, METHADONE MAINT (07/05/16) Family History: States: No Known Family Hx - Social History Hx Alcohol Use: Yes Hx Substance Use: Yes (HEROIN) - Immunization History Hx Tetanus Toxoid Vaccination: No (2015) Hx Influenza Vaccination: No Hx Pneumococcal Vaccination: No Review Of Systems Constitutional: Negative for: Fever, Chills Cardiovascular: Negative for: Chest Pain Respiratory: Negative for: Shortness of Breath Gastrointestinal: Negative for: Nausea, Vomiting Psych: Positive for: Depression, Suicidal ideation. Negative for: Anxiety Physical Exam - Physical Exam Appears: Non-toxic, No Acute Distress Skin: Warm, Dry, No Rash Head: Atraumatic, Normacephalic Eye(s): bilateral: Normal Inspection Oral Mucosa: Moist Neck: Normal ROM, Supple Cardiovascular: Rhythm Regular Respiratory: Normal Breath Sounds, No Rales, No Rhonchi, No Wheezing Gastrointestinal/Abdominal: Soft, No Tenderness, No Guarding, No Rebound Neurological/Psych: Oriented x3, Normal Speech, Normal Cognition ED Course And Treatment - Laboratory Results Result Diagrams: 08/03/17 15:42 08/03/17 15:42 Lab Interpretation: Abnormal (UDS + for opiates, methadone, PCP, cocaine) O2 Sat by Pulse Oximetry: 99 (RA) Pulse Ox Interpretation: Normal Progress Note: Patient is medically cleared for psychiatric admission. Disposition - Disposition Disposition: HOSPITALIZED Disposition Time: 17:58 Condition: STABLE - POA Present On Arrival: None - Clinical Impression Clinical Impression: Major depressive disorder, recurrent, unspecified - Scribe Statement The provider has reviewed the documentation as recorded by the Gabibdeidra Bonilla All medical record entries made by the Gabibdeidra were at my direction and personally dictated by me. I have reviewed the chart and agree that the record accurately reflects my personal performance of the history, physical exam, medical decision making, and the department course for this patient. I have also personally directed, reviewed, and agree with the discharge instructions and disposition.
[2017-08-03 16:03] LABS: HEMOGLOBIN 11.4 g/dL (12.0-18.0)
[2017-08-03 16:14] LABS: ALB/GLOB RATIO 1.1 (1.0-2.1); ALBUMIN 3.8 g/dL (3.5-5.0); ALT/SGPT 49 U/L (21-72); AST/SGOT 35 U/L (17-59); BLOOD UREA NITROGEN 15 mg/dL (9-20); CALCIUM 8.3 mg/dl (8.6-10.4); GFR AFRICAN-AMERICAN > 60; GFR NON-AFRICAN AMERICAN > 60
[2017-08-03 17:20] LABS: URINE BILIRUBIN NEGATIVE (NEGATIVE); URINE BLOOD NEGATIVE (NEGATIVE); URINE CLARITY Clear (Clear); URINE COLOR Yellow (YELLOW); URINE GLUCOSE (UA) NORMAL (Normal); URINE LEUKOCYTE ESTERASE NEG Leu/uL (Negative); URINE PROTEIN NEGATIVE (NEGATIVE)
[2017-08-03 17:28] LABS: BARBITURATES, UR NEGATIVE (NEGATIVE); BENZODIAZEPINES, UR NEGATIVE (NEGATIVE)
[2017-08-03 17:47] LABS: OPIATES, UR POSITIVE (NEGATIVE); PHENCYCLIDINE, UR POSITIVE (NEGATIVE)
[2017-08-03 18:02] VITALS: RESP 18; O2SAT 100
--- NOTE | 2017-08-03 19:54 | PCM.BM ---
<Claudio Campos - Last Filed: 08/03/17 19:52> Treatment Plan Problems - Problems identified on initial assessmt Substance abuse Date Initiated: 08/03/17 Time Initiated: 19:53 Status: Active Depression Date Initiated: 08/03/17 Time Initiated: 19:53 Status: Active Treatment assets and liabiliti Patient Assests: cooperative, insightful, self-reliant, ADL independent, physically healthy, good support system, negotiates basic needs, cognitively intact Patient Liabilities: substance abuse (Heroin, PCP, Crack cocaine), medical problems (Inguinal Hernia), legal issue - Milieu Protocol Maintain good personal hygiene: daily Encourage regular showers, daily Remind patient to perform daily oral care, every shift Assist patient to perform ADL's Conduct patient checks and document Observation sheet: Q15 minutes (For safety) Maintain personal safety: every shift Educate patient to report safety concerns to staff, every shift Monitor environment for contraband/sharps Medication safety: Monitor for expected outcome, potential side effects: every shift, Assess barriers to learning: every shift, Assess readiness for medication education: every shift <Shawna Alvarado - Last Filed: 08/05/17 11:46> Family Contact Family involvement: Famliy/SO not involved - Goals for Treatment Patient goals for treatment: "I want to leave." Discharge/Continuing Care - Education Needs Education Needs: Patient Medication, Patient Coping Skills - Discharge Discharge Criteria: Tolerates medication w/o severe side effects, Reduction of target symptoms Discharge to:: Home - Treatment Team Participation Discussed with Family/SO: No Was Patient/Family/SO present at Treatment Team Meeting: Yes
--- NOTE | 2017-08-04 10:12 | PCM.PSYCH ---
Initial Psychiatric Evaluation - Initial Psychiatric Evaluation Type of Admission: Voluntary Legal Status: Capacity Chief Complaint (in patient's own words): I was feeling depressed and suicidal.' History of Present Illness and Precipitating Events: Pt is a 36 year old HM, who presented to [facility] for having suicidal thoughts. Patient has history of multiple inpatient psychiatric hospitalizations. He was just discharged from [facility] few weeks ago. Pt reported, that soon after discharge from the hospital he started going to the [facility] for methadone. Patient reports that he relapsed on heroin and started injecting 10 bags daily along with cocaine. Yesterday he became increasingly depressed and developed suicidal thoughts so he came to the hospital to get help. Pt reports of having suicidal thoughts since the and his father committed suicide. Pt denies suicidal attempts in the past but stated, I want to take pills or jump in front of a truck but if I did that then I would suffer injuries if my plan didnt go as planned (pt chuckled). Pt stated, His lights went off on Tuesday which made him depressed. Pt reported of being dx with depression many years ago but does not take medication because it made him feel groggy and denies treatment. He reports depressed mood, feelings of hopelessness and helplessness, poor sleep and poor appetite. He also reported withdrawal symptoms including nausea, anxiety, sweating, and back pains. He denies any auditory or visual hallucinations or any psychosis. PMH: None reported Current Medications: Active Medications Generic Name Dose Route Start Last Admin Trade Name Freq PRN Reason Stop Dose Admin Diphenhydramine HCl 25 mg 08/03/17 20:27 08/03/17 21:03 Benadryl PO 25 mg Q6 PRN Administration Allergy symptoms Hydroxyzine HCl 25 mg 08/03/17 20:27 08/03/17 21:02 Atarax PO 25 mg Q6 PRN Administration Anxiety Ibuprofen 400 mg 08/03/17 20:27 08/03/17 21:02 Motrin Tab PO 400 mg Q6 PRN Administration Pain, moderate (4-7) Past Psychiatric History - Past Psychiatric History Previous Treatment History: Inpatient (yes) Pertinent Medical Hx (Current Medical&Sleep Prob, Allergies): Allergies Allergy/AdvReac Type Severity Reaction Status Date / Time No Known Allergies Allergy Verified 08/03/17 14:51 Methadone [Methadone HCl] 88 mg PO DAILY 05/12/17 Review of Systems - Review of Systems All systems: reviewed and no additional remarkable complaints except - Psychiatric Psychiatric: Anxiety, Irritability, Suicidal Ideation Mental Status Examination - Personal Presentation Personal Presentation: Looks stated age - Affect Affect: Constricted, Depressed - Motor Activity Motor Activity: Calm - Reliability in Providing Information Reliability in Providing Information: Fair - Speech Speech: Organized - Mood Mood: Depressed, Anxious - Formal Thought Process Formal Thought Process: No Impairment - Obsessions/Compulsions Obsessions: No Compulsions: No - Cognitive Functions Orientation: Person, Place, Situation, Time Sensorium: Alert Attention/Concentration: Attentive Abstract Thinking: Wilson Estimate of Intelligence: Below average Judgement: Imparied, as evidence by: Poor judgement, Imparied, as evidence by: Lack of insight into illness - Risk Risk: Diminished functioning - Limitations Limitations: Living alone DSM 5 DX - DSM 5 DSM 5 Diagnosis: Major depressive disorder recurrent severe with psychotic features Opioid use disorder severe Cocaine use disorder severe PCP use disorder moderate - Recommended/Plan of Treatment Treatment Recommendations and Plan of Treatment: Major depressive disorder recurrent severe with psychotic features Opioid use disorder severe Cocaine use disorder severe PCP use disorder moderate -CBT -Psychoeducation -Supportive therapy, group therapy, individual therapy -Trazodone 50 mg by mouth daily at bedtime -Hydroxyzine 25 mg by mouth every 6 hours when necessary -Sertraline 50 mg PO Daily -Methadone 30 mg daily (until confirmed with the Kaleidoscope) - Smoking Cessation Smoking Cessation Initiated: No
[2017-08-04] MEDS ORDERED: Aluminum Hydroxide/Magnesium Hydroxide Susp (30 mL) PO PRN (13:05)
[2017-08-04] MEDS ORDERED: Benzocaine/Menthol (Cepacol) Lozenge MT PRN (18:20)
[2017-08-05 06:19] VITALS: BP 114/72; PULSE 101; TEMP 98
--- NOTE | 2017-08-05 10:15 | PCM.PYCHDC ---
Mental Status Examination - Mental Status Examination Orientation: Person, Place, Situation, Time Memory: Intact Mood: Neutral Affect: Constricted Speech: Soft Attention: WNL Concentration: WNL Association: WNL Fund of Knowledge: WNL Formal Thought Process: No Impairment Description of patient's judgement and insight: partially impaired Psychotic Thoughts and Behaviors: denies any AVH Suicidal Ideation: No Current Homicidal Ideation?: No Discharge Summary - Discharge Note Reason for Hospitalization: Pt is a 36 year old HM, who presented to [facility] for having suicidal thoughts. Patient has history of multiple inpatient psychiatric hospitalizations. He was just discharged from [facility] few weeks ago. Pt reported, that soon after discharge from the hospital he started going to the [facility] [address] for methadone. Patient reports that he relapsed on heroin and started injecting 10 bags daily along with cocaine. Yesterday he became increasingly depressed and developed suicidal thoughts so he came to the hospital to get help. Pt reports of having suicidal thoughts since the s and his father committed suicide. Pt denies suicidal attempts in the past but stated, I want to take pills or jump in front of a truck but if I did that then I would suffer injuries if my plan didnt go as planned (pt chuckled). Pt stated, His lights went off on Tuesday which made him depressed. Pt reported of being dx with depression many years ago but does not take medication because it made him feel groggy and denies treatment. He reports depressed mood, feelings of hopelessness and helplessness, poor sleep and poor appetite. He also reported withdrawal symptoms including nausea, anxiety, sweating, and back pains. He denies any auditory or visual hallucinations or any psychosis. Consultations:: List each consultation separately and include: 1. Reason for request. 2. Findings. 3. Follow-up Summary of Hospital Course include:: 1. Description of specific treatment plan utilized for patients during their course of treatmen. 2. Summarize the time- course for resolution of acute symptoms and/or regressed behaviors. 3. Describe issues identified and worked on during hospitalization. 4. Describe medication utilized. 5. Describe medical problems identified and treated. 6. Reassessment of suicide risk Summary of Hospital Course: During the course of his stay, patient (pt) started progressively improving, however, today; he became very irritable and agitated. He became aggressive and agitated with the staff and demanded to get discharged AMA. He signed himself AMA. However he denied any suicidal ideation or homicidal ideation and denied any auditory or visual hallucinations. - Final Diagnosis (DSM 5) Condition upon Discharge: STABLE DSM 5: Major depressive disorder recurrent severe with psychotic features Opioid use disorder severe Cocaine use disorder severe PCP use disorder moderate Disposition: AGAINST MEDICAL ADVICE Follow-up Treatment Plan: Education: Pt was educated and counseled about the risks and benefits of taking and not taking medications. Pt was educated and counseled about the risks of drinking and abusing drugs. Pt was educated and counseled to go to the ER or call 911 if pt develop suicidal ideation or homicidal ideation, worsening of symptoms or severe side effects of the meds. - Smoking Cessation Smoking Cessation Medication prescribed: No - Antipsychotic Medications Pt discharged on 2 or more routine antipsychotic medications: No
[2017-08-05] MEDS ORDERED: Methadone 40 mg Tab PO SCH (10:45)
[2017-08-05] MEDS ORDERED: Methadone 40 mg Tab PO ONE (10:45)
== END 2017-08-05 11:35 | disposition left against medical advice (07) | DRG 430 ==
LOC: C.ER 14:24 → C.9E 17:59 → C.5E 18:15
PROC: GZHZZZZ Group Psychotherapy (ICD-10-PCS; principal; 2017-08-03)
DX: F33.3 Major depressive disorder, recurrent, severe with psychotic symptoms (principal); F16.10 Hallucinogen abuse, uncomplicated; F14.10 Cocaine abuse, uncomplicated; F11.10 Opioid abuse, uncomplicated; F41.9 Anxiety disorder, unspecified; R45.851 Suicidal ideations

== ENCOUNTER 2018-02-18 08:47 | Inpatient (IN) | payer MEDICAID, OTHER ==
[2018-02-18 08:47] VITALS: BMI 33.4
[2018-02-18 09:45] LABS: BASO % 0.6 % (0.0-2.0); EOS # 0.2 K/uL (0.0-0.7); EOS % 2.1 % (0.0-4.0); LYMPH # 1.5 K/uL (1.0-4.3); LYMPH % 20.8 % (20.0-40.0); MEAN CORPUSCULAR HEMOGLOBIN 32.4 pg (27.0-31.0); MEAN CORPUSCULAR HGB CONC 34.4 g/dL (33.0-37.0); MEAN PLATELET VOLUME 7.8 fL (7.2-11.7); MONO # 0.6 K/uL (0.0-0.8); MONO % 7.8 % (0.0-10.0); NEUT % 68.7 % (50.0-75.0); RBC 4.4 Mil/uL (4.40-5.90); RED CELL DISTRIBUTION WIDTH 12.6 % (11.5-14.5); WHITE BLOOD COUNT 7.3 K/uL (4.8-10.8)
[2018-02-18 09:47] LABS: HEMOGLOBIN 14.3 g/dL (12.0-18.0); MEAN CELL VOLUME 94.2 fL (80.0-94.0)
[2018-02-18 10:02] LABS: ALB/GLOB RATIO 1.1 (1.0-2.1); ALBUMIN 4.4 g/dL (3.5-5.0); ALT/SGPT 94 U/L (21-72); AST/SGOT 78 U/L (17-59); BLOOD UREA NITROGEN 15 mg/dL (9-20); CALCIUM 9.2 mg/dl (8.6-10.4); GFR NON-AFRICAN AMERICAN > 60
--- NOTE | 2018-02-18 10:14 | C.PDOC ---
History Of Present Illness 37 y/o male comes in for depression and suicidal ideation since last night. Patient states he has a history of depression and has not been taking any medications. He denies homicidal ideation. Time Seen by Provider: 02/18/18 09:03 Chief Complaint (Nursing): Psychiatric Evaluation History Per: Patient History/Exam Limitations: no limitations Onset/Duration Of Symptoms: Days Current Symptoms Are (Timing): Still Present Past Medical History Reviewed: Historical Data, Nursing Documentation, Vital Signs Vital Signs: Last Vital Signs Temp 98 F 02/18/18 08:52 Pulse 89 02/18/18 08:52 Resp 18 02/18/18 08:52 BP 122/84 02/18/18 08:52 Pulse Ox 97 02/18/18 08:52 - Medical History PMH: Denies: Alzheimer's Disease, Anemia, Anxiety, Arthritis, Asthma, Bipolar Disorder, Bronchitis, Cardia Arrhythmia, CHF, COPD, Crohn's Disease, Dementia, Depression, Diabetes, Diverticulitis, Emphysema, Fibromyalgia, Fractures, Gastrointestinal Ulcer, Gall Bladder Disease, Hepatitis, HIV, HTN, Hypercholesterolemia, Hyperthyroidism, Hypothyroidism, Kidney Stones, Migraine, Mitral Valve Prolapse, Osteoporosis, Pancreatitis, Paranoia, Parkinson's Disease, Peripheral Edema, Pneumonia, Post Traumatic Stress Disorder, Chronic Kidney Disease, Schizophrenia, Seizures, Sickle Cell Disease, Sexually Transmitted Disease, Sleep Apnea, TIA Surgical History: Denies: Appendectomy, Cholecystectomy, Coronary Stent, Pacemaker - [facility] Procedures DETOXIFICATION SERVICES FOR SUBSTANCE ABUSE TREATMENT (05/12/17) GROUP ASSEMBLY LINE MACHINE OPERATOR FOR SUBSTANCE ABUSE TREATMENT, PSYCHOEDUCATION (05/12/17) GROUP ASSEMBLY LINE MACHINE OPERATOR FOR SUBSTANCE ABUSE, COGNITIVE BEHAVIORAL (05/12/17) GROUP PSYCHOTHERAPY (08/03/17) INDIV PSYCHOTHERAPY FOR SUBSTANCE ABUSE TREATMENT, SUPPORT (05/12/17) INDIV PSYCHOTHERAPY FOR SUBSTANCE ABUSE, COGNITIV BEHAVIORAL (05/12/17) INDIV PSYCHOTHERAPY FOR SUBSTANCE ABUSE, PSYCHOEDUCATION (05/12/17) INDIVIDUAL PSYCHOTHERAPY, COGNITIVE-BEHAVIORAL (05/12/17) INDIVIDUAL PSYCHOTHERAPY, SUPPORTIVE (05/12/17) MEDS MGMT FOR SUBSTANCE ABUSE TREATMENT, METHADONE MAINT (07/05/16) Family History: States: No Known Family Hx - Social History Hx Alcohol Use: Yes Hx Substance Use: Yes (PCP) - Immunization History Hx Tetanus Toxoid Vaccination: No Hx Influenza Vaccination: No Hx Pneumococcal Vaccination: No Review Of Systems Except As Marked, All Systems Reviewed And Found Negative. Constitutional: Negative for: Fever, Chills Psych: Positive for: Depression, Suicidal ideation. Negative for: Other (Homicidal ideation) Physical Exam - Physical Exam Appears: Non-toxic, No Acute Distress Skin: Warm, Dry Head: Atraumatic, Normacephalic Eye(s): bilateral: Normal Inspection Oral Mucosa: Moist Neck: Supple Cardiovascular: Rhythm Regular, No Murmur Respiratory: Normal Breath Sounds, No Rales, No Rhonchi, No Wheezing Extremity: Bilateral: Atraumatic, Normal Color And Temperature, Normal ROM Neurological/Psych: Oriented x3, Normal Speech ED Course And Treatment - Laboratory Results Result Diagrams: 02/18/18 09:30 02/18/18 09:30 Lab Results: Total Bilirubin 0.4 mg/dL (0.2-1.3) 02/18/18 09:30 AST 78 U/L (17-59) H D 02/18/18 09:30 ALT 94 U/L (21-72) H D 02/18/18 09:30 Alkaline Phosphatase 76 U/L (38-126) 02/18/18 09:30 Total Protein 8.3 g/dL (6.3-8.3) 02/18/18 09:30 Albumin 4.4 g/dL (3.5-5.0) 02/18/18 09:30 Globulin 3.9 gm/dL (2.2-3.9) 02/18/18 09:30 Albumin/Globulin Ratio 1.1 (1.0-2.1) 02/18/18 09:30 O2 Sat by Pulse Oximetry: 97 (RA) Pulse Ox Interpretation: Normal Progress Note: Bloodwork and urinalysis ordered. Patient was medically cleared, accepted to Psych by . Disposition - Disposition Disposition: HOSPITALIZED Disposition Time: 11:43 Condition: STABLE - Clinical Impression Clinical Impression: Depression - PA / CRANE OPERATOR / Resident Statement MD/DO has reviewed & agrees with the documentation as recorded. - Scribe Statement The provider has reviewed the documentation as recorded by the Scribe Shasha Sam All medical record entries made by the Scribe were at my direction and personally dictated by me. I have reviewed the chart and agree that the record accurately reflects my personal performance of the history, physical exam, medical decision making, and the department course for this patient. I have also personally directed, reviewed, and agree with the discharge instructions and disposition. Decision To Admit - Pt Status Changed To: Hospital Disposition Of: Inpatient - Admit Certification Admit to Inpatient:: After my assessment, the patient will require hospitalization for at least two midnights. This is because of the severity of symptoms shown, intensity of services needed, and/or the medical risk in this patient being treated as an outpatient. - InPatient: Physician Admission Certification: I certify that this patient requires 2 or more midnights of care for the following reason:: needs more than 2 days of hospitalization - . Bed Request Type: Psychiatry Admitting Physician: Cristy Salgado Patient Diagnosis: Depression
[2018-02-18 10:26] LABS: SQUAMOUS EPITHIAL < 1 /hpf (0-5); URINE BILIRUBIN NEGATIVE (NEGATIVE); URINE BLOOD NEGATIVE (NEGATIVE); URINE CLARITY Clear (Clear); URINE COLOR Yellow (YELLOW); URINE GLUCOSE (UA) NORMAL (Normal); URINE LEUKOCYTE ESTERASE NEG Leu/uL (Negative); URINE PROTEIN NEGATIVE (NEGATIVE); URINE UROBILINOGEN NORMAL mg/dL (0.2-1.0)
[2018-02-18 10:52] LABS: BARBITURATES, UR NEGATIVE (NEGATIVE); PHENCYCLIDINE, UR NEGATIVE (NEGATIVE)
[2018-02-18 11:24] LABS: BENZODIAZEPINES, UR POSITIVE (NEGATIVE); OPIATES, UR POSITIVE (NEGATIVE)
[2018-02-18] MEDS ORDERED: Pneumococcal 23-Valent Vaccine SC ONE (13:01)
--- NOTE | 2018-02-18 14:24 | PCM.BM ---
<Lynsey Perez - Last Filed: 02/18/18 14:22> Treatment Plan Problems - Problems identified on initial assessmt hopeless/helpless Date Initiated: 02/18/18 Time Initiated: 14:24 Assessment reference: NA Status: Active loss of self esteem Date Initiated: 02/18/18 Time Initiated: 14:25 Assessment reference: NA Status: Active Anxiety related to substance abuse Date Initiated: 02/18/18 Time Initiated: 14:25 Assessment reference: NA Status: Active Treatment assets and liabiliti Patient Assests: good support system, negotiates basic needs, cognitively intac t, cooperative, insightful, self-reliant, ADL independent, physically healthy Patient Liabilities: substance abuse - Milieu Protocol Maintain good personal hygiene: daily Encourage regular showers Conduct patient checks and document Observation sheet: Q15 minutes Maintain personal safety: every shift Educate patient to report safety concerns to staff, every shift Monitor environment for contraband/sharps Medication safety: Monitor for expected outcome, potential side effects: every shift, Assess barriers to learning: every shift, Assess readiness for medication education: every shift <Shawna Alvarado - Last Filed: 02/20/18 10:01> Family Contact Family involvement: Famliy/SO not involved - Goals for Treatment Patient goals for treatment: "I want to leave." Discharge/Continuing Care - Education Needs Education Needs: Patient Medication, Patient Coping Skills, Patient Community resources - Discharge Discharge Criteria: Tolerates medication w/o severe side effects, No longer exhibiting s/s of withdrawal, Reduction of target symptoms Discharge to:: Home - Treatment Team Participation Discussed with Family/SO: No Was Patient/Family/SO present at Treatment Team Meeting: Yes (Pt signed out AMA.)
[2018-02-18] MEDS ORDERED: Aluminum Hydroxide/Magnesium Hydroxide Susp (30 mL) PO PRN (14:57)
[2018-02-19 06:28] VITALS: RESP 20
--- NOTE | 2018-02-19 10:50 | PCM.PSYCH ---
Initial Psychiatric Evaluation - Initial Psychiatric Evaluation Type of Admission: Voluntary Legal Status: Capacity Chief Complaint (in patient's own words): "I was very depressed b/c of drugs" History of Present Illness and Precipitating Events: The patient is a 37 y/o male who is unemployed from a ho job, stays with family on and off, and single with no children. He has a girlfriend He states that he used to shoot 2 bundles of heroin a day for the past 20 years. He also states that he shoots or smokes cocaine, smokes a pack of cigarettes a day, and drinks alcohol sometimes "too much" for the past 20 years. He also used PCP in the past. He denies other drugs. He has experienced blackouts and seizures in the past. He says that his longest sobriety was when he was in jail for 5 years. He states that he was depressed and has had a previous suicide attempt. He complains of constant anxiety. He reports several depressive sxs. He claims he is not suicidal now or having manic/psychotic features. He has no intention or plan to hurt himseld now but he thinks about it now b/c he feels hopeless about his drug use. He was going to a methadone clinic ([facility]) but stopped. He has relapsed and using 10-20 bags iv Past medical history: denies Past psych history: Suicide attempt and 3-4 admissions in psych Family psych history: Father committed suicide Current Medications: Active Medications Generic Name Dose Route Start Last Admin Trade Name Freq PRN Reason Stop Dose Admin Al Hydrox/Mg Hydrox/Simethicone 30 ml 02/18/18 14:57 Maalox 30 Ml PO TID PRN Indigestion / Heartburn Clonidine HCl 0.1 mg 02/18/18 14:57 Catapres PO Q4 PRN COWS Score More or Equal to 5 Hydroxyzine HCl 50 mg 02/18/18 14:56 Atarax PO Q6H PRN Anxiety Ibuprofen 600 mg 02/18/18 14:56 Motrin Tab PO Q6H PRN Pain, moderate (4-7) Loperamide HCl 2 mg 02/18/18 14:57 Imodium PO Q8 PRN Diarrhea Methadone HCl 15 mg 02/19/18 10:00 02/19/18 09:08 Methadone PO 02/22/18 09:59 15 mg Q24H ALYSE Administration Taper Mirtazapine 15 mg 02/18/18 22:00 02/18/18 22:22 Remeron PO Not Given HS ALYSE Ondansetron HCl 4 mg 02/18/18 14:57 02/18/18 22:22 Zofran Tab PO 4 mg Q8 PRN Administration Nausea/Vomiting Past Psychiatric History - Past Psychiatric History Previous Treatment History: Inpatient Pertinent Medical Hx (Current Medical&Sleep Prob, Allergies): Allergies Allergy/AdvReac Type Severity Reaction Status Date / Time No Known Allergies Allergy Verified 02/18/18 08:49 No Known Home Med 02/18/18 Review of Systems - Psychiatric Psychiatric: Abnormal Sleep Pattern, Anhedonia, Anxiety, Change in Appetite, Depression, Difficulty Concentrating, Irritability, Mood Swings, Suicidal Ideation (no plans or intention now). absent: Hallucinations, Homicidal Ideation Mental Status Examination - Personal Presentation Personal Presentation: Looks older than stated age - Affect Affect: Constricted - Motor Activity Motor Activity: Calm - Reliability in Providing Information Reliability in Providing Information: Good - Speech Speech: Organized - Mood Mood: Depressed, Anxious - Formal Thought Process Formal Thought Process: No Impairment - Cognitive Functions Orientation: Person, Place, Situation, Time Sensorium: Alert Attention/Concentration: Easily distracted Estimate of Intelligence: Average Judgement: Intact, as evidence by: Insight regarding need for hospitalization Memory: Recent intact, as evidence by: Ability to recall events of the day, Remote intact, as evidenced by: Abilit to recall sig. life events - Risk Risk: Withdrawal, Diminished functioning - Strength & Assets Inventory Strength & Assets Inventory: Cooperative - Limitations Limitations: Other DSM 5 DX - DSM 5 DSM 5 Diagnosis: Major depressive disorder, severe, recurrent, without psychosis Opioid use disorder, severe Opioid withdrawal - Recommended/Plan of Treatment Treatment Recommendations and Plan of Treatment: Methadone detox Remeron for depression As needed Benadryl for sleep Other as needed medications Gabapentin for augmentation if needed All risks, benefits and alternatives of medications, including no medications, discussed and the patient understood and agreed. Attend groups and activities Supportive therapy and psychoeducation [place] for abstinence CBT for relapse prevention Encourage MAT Refer to rehab or IOP Attend self-help groups as well [place] for smoking cessation and patch if needed 33 min
[2018-02-20 06:03] VITALS: BP 126/76; PULSE 72; TEMP 98.4; O2SAT 98
--- NOTE | 2018-02-20 09:44 | PCM.PYCHDC ---
Mental Status Examination - Mental Status Examination Orientation: Person Discharge Summary - Discharge Note Consultations:: List each consultation separately and include: 1. Reason for request. 2. Findings. 3. Follow-up Summary of Hospital Course include:: 1. Description of specific treatment plan utilized for patients during their course of treatmen. 2. Summarize the time- course for resolution of acute symptoms and/or regressed behaviors. 3. Describe issues identified and worked on during hospitalization. 4. Describe medication utilized. 5. Describe medical problems identified and treated. 6. Reassessment of suicide risk Summary of Hospital Course: The patient is a 37 y/o male who is unemployed from a ho job, stays with family on and off, and single with no children. He has a girlfriend He states that he used to shoot 2 bundles of heroin a day for the past 20 years. He also states that he shoots or smokes cocaine, smokes a pack of cigarettes a day, and drinks alcohol sometimes "too much" for the past 20 years. He also used PCP in the past. He denies other drugs. He has experienced blackouts and seizures in the past. He says that his longest sobriety was when he was in [facility] for 5 years. He states that he was depressed and has had a previous suicide attempt. He complains of constant anxiety. He reports several depressive sxs. He claims he is not suicidal now or having manic/psychotic features. He has no intention or plan to hurt himseld now but he thinks about it now b/c he feels hopeless about his drug use. He was going to a methadone clinic ([facility]) but stopped. He has relapsed and using 10-20 bags iv Past medical history: denies Past psych history: Suicide attempt and 3-4 admissions in psych Family psych history: Father committed suicide - Final Diagnosis (DSM 5) Condition upon Discharge: STABLE Disposition: AGAINST MEDICAL ADVICE Follow-up Treatment Plan: Methadone detox Remeron for depression As needed Benadryl for sleep Other as needed medications Gabapentin for augmentation if needed All risks, benefits and alternatives of medications, including no medications, discussed and the patient understood and agreed. Attend groups and activities Supportive therapy and psychoeducation [place] for abstinence CBT for relapse prevention Encourage MAT Refer to rehab or IOP Attend self-help groups as well [place] for smoking cessation and patch if needed 33 min
== END 2018-02-20 10:05 | disposition left against medical advice (07) | DRG 430 ==
LOC: C.ER 08:47 → C.5E 11:26
PROVIDERS: ADMIT Psychiatry & Neurology Psychiatry; ATTEND Psychiatry & Neurology Psychiatry
PROC: GZ3ZZZZ Medication Management (ICD-10-PCS; principal; 2018-02-18)
PROC: HZ81ZZZ Medication Management for Substance Abuse Treatment, Methadone Maintenance (ICD-10-PCS; 2018-02-18)
PROC: HZ2ZZZZ Detoxification Services for Substance Abuse Treatment (ICD-10-PCS; 2018-02-18)
PROC: GZHZZZZ Group Psychotherapy (ICD-10-PCS; 2018-02-18)
PROC: GZ56ZZZ Individual Psychotherapy, Supportive (ICD-10-PCS; 2018-02-18)
DX: F33.2 Major depressive disorder, recurrent severe without psychotic features (principal); F11.23 Opioid dependence with withdrawal; F14.90 Cocaine use, unspecified, uncomplicated; R45.851 Suicidal ideations; F17.210 Nicotine dependence, cigarettes, uncomplicated; F41.9 Anxiety disorder, unspecified; Z91.5 Personal history of self-harm

== ENCOUNTER 2018-03-29 02:17 | Inpatient (IN) | payer OTHER ==
[2018-03-29 02:18] VITALS: BMI 33.4
--- NOTE | 2018-03-29 02:42 | C.PDOC ---
History Of Present Illness 37 year old male presents to the ED for evaluation of SI that started yesterday. Patient admits to using heroin. Patient denies HI, hallucinations, CP, SOB, injury, fall, trauma. Chief Complaint (Nursing): Psychiatric Evaluation History Per: Patient History/Exam Limitations: no limitations Onset/Duration Of Symptoms: Days Current Symptoms Are (Timing): Still Present Suicide/Self Injury Attempted (Context): None Modifying Factor(s): Narcotics Associated Symptoms: Depression, Suicidal Thoughts. denies: Suicidal Plan Recent travel outside of the [place]: No Additional History Per: Patient Past Medical History Reviewed: Historical Data, Nursing Documentation, Vital Signs Vital Signs: Last Vital Signs Temp 98.8 F 03/29/18 02:26 Pulse 101 H 03/29/18 02:26 Resp 20 03/29/18 02:26 BP 112/68 03/29/18 02:26 Pulse Ox 99 03/29/18 02:26 - Medical History PMH: Depression Denies: Alzheimer's Disease, Anemia, Anxiety, Arthritis, Asthma, Bipolar Disorder, Bronchitis, Cardia Arrhythmia, CHF, COPD, Crohn's Disease, Dementia, Diabetes, Diverticulitis, Emphysema, Fibromyalgia, Fractures, Gastrointestinal Ulcer, Gall Bladder Disease, Hepatitis, HIV, HTN, Hypercholesterolemia, Hyperthyroidism, Hypothyroidism, Kidney Stones, Migraine, Mitral Valve Prolapse, Osteoporosis, Pancreatitis, Paranoia, Parkinson's Disease, Peripheral Edema, Pneumonia, Post Traumatic Stress Disorder, Chronic Kidney Disease, Schizophrenia, Seizures, Sickle Cell Disease, Sexually Transmitted Disease, Sleep Apnea, TIA Surgical History: No Surg Hx Denies: Appendectomy, Cholecystectomy, Coronary Stent, Pacemaker - [facility] Procedures DETOXIFICATION SERVICES FOR SUBSTANCE ABUSE TREATMENT (02/18/18) GROUP INSURANCE ACCOUNT REPRESENTATIVE FOR SUBSTANCE ABUSE TREATMENT, PSYCHOEDUCATION (05/12/17) GROUP INSURANCE ACCOUNT REPRESENTATIVE FOR SUBSTANCE ABUSE, COGNITIVE BEHAVIORAL (05/12/17) GROUP PSYCHOTHERAPY (02/18/18) INDIV PSYCHOTHERAPY FOR SUBSTANCE ABUSE TREATMENT, SUPPORT (05/12/17) INDIV PSYCHOTHERAPY FOR SUBSTANCE ABUSE, COGNITIV BEHAVIORAL (05/12/17) INDIV PSYCHOTHERAPY FOR SUBSTANCE ABUSE, PSYCHOEDUCATION (05/12/17) INDIVIDUAL PSYCHOTHERAPY, COGNITIVE-BEHAVIORAL (05/12/17) INDIVIDUAL PSYCHOTHERAPY, SUPPORTIVE (02/18/18) MEDICATION MANAGEMENT (02/18/18) MEDS MGMT FOR SUBSTANCE ABUSE TREATMENT, METHADONE MAINT (02/18/18) Family History: States: Unknown Family Hx - Social History Hx Alcohol Use: Yes Hx Substance Use: Yes - Immunization History Hx Tetanus Toxoid Vaccination: No Hx Influenza Vaccination: No Hx Pneumococcal Vaccination: No Review Of Systems Constitutional: Negative for: Fever, Chills Cardiovascular: Negative for: Chest Pain Respiratory: Negative for: Shortness of Breath Gastrointestinal: Negative for: Nausea, Vomiting, Abdominal Pain Skin: Negative for: Rash Neurological: Negative for: Weakness, Numbness Psych: Positive for: Depression, Suicidal ideation Physical Exam - Physical Exam Appears: Non-toxic, No Acute Distress Skin: Normal Color, Warm, Dry Head: Atraumatic, Normacephalic Eye(s): bilateral: Normal Inspection Neck: Normal ROM, Supple Chest: Symmetrical Cardiovascular: Rhythm Regular Respiratory: Normal Breath Sounds, No Rales, No Rhonchi, No Wheezing Gastrointestinal/Abdominal: Soft, No Tenderness, No Guarding, No Rebound Extremity: Normal ROM, No Tenderness, No Swelling Neurological/Psych: Oriented x3, Normal Speech, Normal Cognition Gait: Steady ED Course And Treatment - Laboratory Results Result Diagrams: 03/29/18 02:59 03/29/18 02:59 O2 Sat by Pulse Oximetry: 99 (On RA) Pulse Ox Interpretation: Normal Medical Decision Making Medical Decision Making: Plan: * Labs * UA * Crisis eval Disposition Discussed With : Cristy Salgado Doctor Will See Patient In The: Hospital Counseled Patient/Family Regarding: Diagnosis - Disposition Disposition: HOSPITALIZED Disposition Time: 04:39 Condition: STABLE Forms: [facility] (Ecuadorean) - POA Present On Arrival: None - Clinical Impression Clinical Impression: Major depression, Alcohol abuse, Opiate abuse, continuous, Cocaine abuse - Scribe Statement The provider has reviewed the documentation as recorded by the Scribe Ozzie Rudd All medical record entries made by the Scribe were at my direction and personally dictated by me. I have reviewed the chart and agree that the record accurately reflects my personal performance of the history, physical exam, medical decision making, and the department course for this patient. I have also personally directed, reviewed, and agree with the discharge instructions and disposition.
[2018-03-29 03:03] LABS: URINE BILIRUBIN NEGATIVE (NEGATIVE); URINE BLOOD NEGATIVE (NEGATIVE); URINE CLARITY Hazy (Clear); URINE COLOR Yellow (YELLOW); URINE GLUCOSE (UA) NORMAL (Normal); URINE LEUKOCYTE ESTERASE NEG Leu/uL (Negative); URINE PROTEIN NEGATIVE (NEGATIVE)
[2018-03-29 03:05] LABS: BASO # 0.1 K/uL (0.0-0.2); BASO % 1.2 % (0.0-2.0); EOS # 0.2 K/uL (0.0-0.7); EOS % 2.9 % (0.0-4.0); HEMOGLOBIN 13.1 g/dL (12.0-18.0); LYMPH # 1.8 K/uL (1.0-4.3); LYMPH % 24.9 % (20.0-40.0); MEAN CELL VOLUME 93.5 fL (80.0-94.0); MEAN CORPUSCULAR HGB CONC 34.2 g/dL (33.0-37.0); MEAN PLATELET VOLUME 7.4 fL (7.2-11.7); MONO # 0.7 K/uL (0.0-0.8); MONO % 9.4 % (0.0-10.0); NEUT # 4.5 K/uL (1.8-7.0); NEUT % 61.6 % (50.0-75.0); NRBC % 0.1 % (0.0-2.0); RBC 4.11 Mil/uL (4.40-5.90); WHITE BLOOD COUNT 7.3 K/uL (4.8-10.8)
[2018-03-29 03:15] LABS: ALB/GLOB RATIO 1.1 (1.0-2.1); ALBUMIN 4.1 g/dL (3.5-5.0); ALT/SGPT 75 U/L (21-72); AST/SGOT 52 U/L (17-59); BLOOD UREA NITROGEN 22 mg/dL (9-20); GFR NON-AFRICAN AMERICAN > 60
[2018-03-29 03:24] LABS: BARBITURATES, UR NEGATIVE (NEGATIVE); BENZODIAZEPINES, UR NEGATIVE (NEGATIVE)
[2018-03-29 04:00] LABS: OPIATES, UR POSITIVE (NEGATIVE); PHENCYCLIDINE, UR POSITIVE (NEGATIVE)
--- NOTE | 2018-03-29 05:38 | PCM.BM ---
<Carleen Carbajal - Last Filed: 03/29/18 05:36> Treatment Plan Problems - Problems identified on initial assessmt Deffective coping Date Initiated: 03/29/18 Time Initiated: 05:36 Assessment reference: NA Status: Active Thought Alteration Date Initiated: 03/29/18 Time Initiated: 05:37 Date resolved: 03/29/18 Assessment reference: NA Status: Active Treatment assets and liabiliti Patient Assests: good support system, negotiates basic needs, cognitively intact, cooperative, insightful, self-reliant, ADL independent, physically healthy Patient Liabilities: live alone, poor support system, substance abuse, legal issue - Milieu Protocol Maintain good personal hygiene: daily Encourage regular showers, daily Remind patient to perform daily oral care, daily Assist patient to perform ADL's Conduct patient checks and document Observation sheet: Q15 minutes Maintain personal safety: every shift Educate patient to report safety concerns to staff, every shift Monitor environment for contraband/sharps Medication safety: Monitor for expected outcome, potential side effects: every shift, Assess barriers to learning: every shift, Assess readiness for medication education: every shift <Johnathan Westbrook - Last Filed: 03/31/18 10:53> - Diagnosis (1) Bipolar disorder Status: Acute Interventions: * Assess/adjust medications daily and /or as needed * See patient on an individual basis 7x/week to assess level of manic behaviors and stability * Discuss risks, benefits, side effects and alternatives of medications * (2) Opiate abuse, continuous Status: Acute Interventions: 03/31/18 10:54 * Assess 7x/week regarding severity of withdrawal * Educate regarding risks, benefits, side effects and alternatives of medications * Use Motivational Interviewing for abstinence * Use CBT for relapse prevention * Medication management for withdrawal symptoms * Encourage medication assisted treatment * <Shawna Alvarado - Last Filed: 03/31/18 11:57> Family Contact Family involvement: Famlilisa/SO not involved - Goals for Treatment Patient goals for treatment: "I want to go to rehab." Discharge/Continuing Care - Education Needs Education Needs: Patient Medication, Patient Coping Skills, Patient Placement options, Patient Community resources - Discharge Discharge Criteria: Tolerates medication w/o severe side effects, No longer exhibiting s/s of withdrawal, Reduction of target symptoms Discharge to:: Substance Abuse Rehab - Treatment Team Participation Discussed with Family/SO: No Was Patient/Family/SO present at Treatment Team Meeting: Yes
--- NOTE | 2018-03-29 09:55 | PCM.PSYCH ---
Initial Psychiatric Evaluation - Initial Psychiatric Evaluation Type of Admission: Voluntary Legal Status: Capacity Chief Complaint (in patient's own words): I was feeling depressed and suicidal.' History of Present Illness and Precipitating Events: The patient is a 37-year-old male who is unemployed from a ho job, lives with his fianc, with no children. Patient came to [facility] ED because he states that he is depressed with suicidal ideation. Patient states that he is depressed and that he drinks alcohol and does drugs to make himself feel better. He states that when he drinks, he escapes reality for a short amount of time but that he also becomes suicidal. He has a previous suicide attempt in 2014 when he tried to hang himself with a shirt. Patient was last seen here last month for detox and left AMA claiming he had a family emergency. He reports leaving the hospital last time and doing well for a bit but then relapsing again soon after. Patient reports having an extensive substance use history. He states that he used to shoot 2 bundles of heroin a day for the past 20 years. He was going to [facility] for methadone but stopped. He also states that he shoots or smokes cocaine, smokes a pack of cigarettes a day, and drinks 0.5 pints a day of alcohol for the past 20 years. He also used PCP in the past but denies any other drug use. He has experienced blackouts and seizures in the past. He says that his longest sobriety was when he was in alf for 5 years. He reports depressed mood and feelings of hopelessness and helplessness. He also reports poor sleep and poor appetite. He reports withdrawal symptoms including nausea, cramps, joint pains and headaches. He denies any auditory hallucinations or any paranoia. However he reports at times irritability and agitation. Past psych history: Suicide attempt and 3-4 admissions to inpatient psych abdul Family psych history: Father committed suicide PMHx: denies Current Medications: Active Medications Generic Name Dose Route Start Last Admin Trade Name Freq PRN Reason Stop Dose Admin Influenza Virus Vaccine 60 mcg 03/31/18 10:00 Flucelvax Quad 8948-4002 Syr IM 03/31/18 10:01 .ONCE ONE Pneumococcal Polyvalent Vaccine 0.5 ml 03/31/18 10:30 Pneumovax 23 Vaccine IM 03/31/18 10:31 .ONCE ONE Past Psychiatric History - Past Psychiatric History Previous Treatment History: Inpatient Pertinent Medical Hx (Current Medical&Sleep Prob, Allergies): Allergies Allergy/AdvReac Type Severity Reaction Status Date / Time No Known Allergies Allergy Verified 03/29/18 02:32 No Known Home Med 02/18/18 Review of Systems - Review of Systems All systems: reviewed and no additional remarkable complaints except - Psychiatric Psychiatric: Anxiety, Irritability, Mood Swings, Suicidal Ideation Mental Status Examination - Personal Presentation Personal Presentation: Looks stated age - Affect Affect: Constricted, Depressed - Motor Activity Motor Activity: Calm - Reliability in Providing Information Reliability in Providing Information: Fair - Mood Mood: Depressed, Anxious - Formal Thought Process Formal Thought Process: No Impairment - Obsessions/Compulsions Obsessions: No Compulsions: No - Cognitive Functions Orientation: Person, Place, Situation, Time Sensorium: Alert Attention/Concentration: Attentive Abstract Thinking: [place] Estimate of Intelligence: Below average Judgement: Imparied, as evidence by: Poor judgement, Imparied, as evidence by: Lack of insight into illness - Risk Risk: Suicidal, Withdrawal, Diminished functioning - Limitations Limitations: Living alone DSM 5 DX - DSM 5 DSM 5 Diagnosis: Bipolar depressed severe with out psychotic features Opioid use disorder severe Opioid withdrawal Cannabis use disorder moderate Alcohol use disorder moderate - Recommended/Plan of Treatment Treatment Recommendations and Plan of Treatment: Bipolar depressed severe with out psychotic features Opioid use disorder severe Opioid withdrawal Cannabis use disorder moderate Alcohol use disorder moderate CBT Psychoeducation Supportive therapy and group therapy Hydroxyzine for anxiety Methadone taper Neurontin for augmentation Depakote for mood Withdrawal medications including clonidine/Zofran/Imodium/Tylenol
[2018-03-29] MEDS ORDERED: Aluminum Hydroxide/Magnesium Hydroxide Susp (30 mL) PO PRN (09:59)
[2018-03-29] MEDS: Divalproex 250 mg DR Tab PO SCH ×3 (10:40→17:57)
[2018-03-30] MEDS: Divalproex 250 mg DR Tab PO SCH ×2 (09:44→18:29)
--- NOTE | 2018-03-30 11:20 | PCM.PYCHPN ---
Psychiatric Progress Note - Psychiatric Progress Note Patient seen today, length of contact: 15 min Patient Chief Complaint: I was feeling depressed and suicidal.' Problems Identified/Issues Discussed: Patient was seen and evaluated, chart reviewed and discussed the staff. As per the staff, patient remained isolative and withdrawn. Patient reports depressed mood and at times feelings of hopelessness and helplessness. He also reports poor sleep and poor appetite. He reports withdrawal symptoms including nausea, cramps, anxiety, joint pains, and sweating. He has started taking medication but denies any side effects. Symptoms are improving gradually but he needs to stay longer for further stabilization. Supportive therapy was given. Medication Change: Yes Medical Record Reviewed: Yes Mental Status Examination - Cognitive Function Orientation: Person, Place, Situation, Time Memory: Intact Attention: WNL Concentration: Poor Association: WNL Fund of Knowledge: Poor - Mood Mood: Depressed, Anxious - Affect Affect: Constricted, Depressed - Speech Speech: Soft - Formal Thought Process Formal Thought Process: No Impairment - Suicidal Ideation Suicidal Ideation: No - Homicidal Ideation Homicidal Ideation: No Goal/Treatment Plan - Goal/Treatment Plan Need for Continued Stay: Remain at risks for inpatient hospitalization Progress Toward Problem(s) and Goals/Treatment Plan: Bipolar depressed severe with out psychotic features Opioid use disorder severe Opioid withdrawal Cannabis use disorder moderate Alcohol use disorder moderate -CBT -Psychoeducation -Supportive therapy and group therapy -Hydroxyzine for anxiety -Methadone taper -Neurontin for augmentation -Depakote for mood -Seroquel for mood -Trazodone for insomnia -Withdrawal medications including clonidine/Zofran/Imodium/Tylenol - Smoking Cessation Smoking Cessation Initiated: No
[2018-03-31] MEDS: Divalproex 250 mg DR Tab PO SCH ×2 (09:42→17:10)
[2018-03-31] MEDS ORDERED: Influenza Vaccine 60 mcg/0.5 mL SYR (4YR UP) IM ONE (10:00)
[2018-03-31] MEDS ORDERED: Pneumococcal 23-Valent Vaccine IM ONE (10:30)
--- NOTE | 2018-03-31 10:53 | PCM.PYCHPN ---
Psychiatric Progress Note - Psychiatric Progress Note Patient seen today, length of contact: 15 min Patient Chief Complaint: I was feeling depressed.' Problems Identified/Issues Discussed: Patient was seen and evaluated, chart reviewed and discussed the staff. Patient reports depressed mood but reports some improvement in the feelings of hopelessness and helplessness. As per the staff, patient remained isolative and withdrawn. He also reports poor sleep and poor appetite. He reports withdrawal symptoms including nausea, cramps, anxiety, joint pains, and sweating. He has started taking medication but denies any side effects. Symptoms are improving gradually but he needs to stay longer for further stabilization. Supportive therapy was given. Medication Change: Yes Medical Record Reviewed: Yes Mental Status Examination - Cognitive Function Orientation: Person, Place, Situation, Time Memory: Intact Attention: WNL Concentration: Poor Association: WNL Fund of Knowledge: Poor - Mood Mood: Depressed, Anxious - Affect Affect: Constricted, Depressed - Speech Speech: Soft - Formal Thought Process Formal Thought Process: No Impairment - Suicidal Ideation Suicidal Ideation: No - Homicidal Ideation Homicidal Ideation: No Goal/Treatment Plan - Goal/Treatment Plan Need for Continued Stay: Remain at risks for inpatient hospitalization Progress Toward Problem(s) and Goals/Treatment Plan: Bipolar depressed severe with out psychotic features Opioid use disorder severe Opioid withdrawal Cannabis use disorder moderate Alcohol use disorder moderate -CBT -Psychoeducation -Supportive therapy and group therapy -Hydroxyzine for anxiety -Methadone taper -Neurontin for augmentation -Depakote for mood -Seroquel for mood -Trazodone for insomnia -Withdrawal medications including clonidine/Zofran/Imodium/Tylenol
[2018-04-01 06:45] VITALS: O2SAT 100
[2018-04-01] MEDS: Divalproex 250 mg DR Tab PO SCH ×2 (09:07→18:19)
[2018-04-02 08:00] VITALS: BP 130/78; PULSE 65; RESP 20; TEMP 97.5
[2018-04-02] MEDS: Divalproex 250 mg DR Tab PO SCH (09:13)
== END 2018-04-02 11:10 | disposition home or self-care (01) | DRG 430 ==
LOC: C.ER 02:17 → C.5E 04:41
PROVIDERS: ADMIT Psychiatry & Neurology Psychiatry; ATTEND Psychiatry & Neurology Psychiatry
PROC: GZ56ZZZ Individual Psychotherapy, Supportive (ICD-10-PCS; principal; 2018-03-29)
DX: F31.4 Bipolar disorder, current episode depressed, severe, without psychotic features (principal); F14.10 Cocaine abuse, uncomplicated; F11.23 Opioid dependence with withdrawal; F16.10 Hallucinogen abuse, uncomplicated; F17.210 Nicotine dependence, cigarettes, uncomplicated; F41.9 Anxiety disorder, unspecified; G47.00 Insomnia, unspecified; R45.851 Suicidal ideations; Z91.5 Personal history of self-harm; F10.10 Alcohol abuse, uncomplicated; F12.10 Cannabis abuse, uncomplicated

== ENCOUNTER 2018-05-27 17:16 | Inpatient (IN) | payer MEDICAID ==
[2018-05-27 17:18] VITALS: BMI 33.4
--- NOTE | 2018-05-27 17:51 | C.PDOC ---
History Of Present Illness 37 year old male presents to the emergency department with complaints of feeling depressed since yesterday, worse today. Patient states that he has suicidal ideations, and reports a plan to overdose on pills. Patient denies current p hysical complaints or homicidal ideations, hallucinations. Time Seen by Provider: 05/27/18 17:30 Chief Complaint (Nursing): Psychiatric Evaluation History Per: Patient History/Exam Limitations: no limitations Onset/Duration Of Symptoms: Days (1) Current Symptoms Are (Timing): Worse Suicide/Self Injury Attempted (Context): None Associated Symptoms: Depression, Suicidal Thoughts, Suicidal Plan Involuntary Hold By: Emergency Physician Past Medical History Reviewed: Historical Data, Nursing Documentation, Vital Signs Vital Signs: Last Vital Signs Temp 97.9 F 05/27/18 17:26 Pulse 70 05/27/18 17:26 Resp 18 05/27/18 17:26 BP 110/68 05/27/18 17:26 Pulse Ox 97 05/27/18 17:26 - Medical History PMH: Depression Surgical History: No Surg Hx - [facility] Procedures DETOXIFICATION SERVICES FOR SUBSTANCE ABUSE TREATMENT (02/18/18) GROUP STOREROOM ATTENDANT FOR SUBSTANCE ABUSE TREATMENT, PSYCHOEDUCATION (05/12/17) GROUP STOREROOM ATTENDANT FOR SUBSTANCE ABUSE, COGNITIVE BEHAVIORAL (05/12/17) GROUP PSYCHOTHERAPY (02/18/18) INDIV PSYCHOTHERAPY FOR SUBSTANCE ABUSE TREATMENT, SUPPORT (05/12/17) INDIV PSYCHOTHERAPY FOR SUBSTANCE ABUSE, COGNITIV BEHAVIORAL (05/12/17) INDIV PSYCHOTHERAPY FOR SUBSTANCE ABUSE, PSYCHOEDUCATION (05/12/17) INDIVIDUAL PSYCHOTHERAPY, COGNITIVE-BEHAVIORAL (05/12/17) INDIVIDUAL PSYCHOTHERAPY, SUPPORTIVE (03/29/18) MEDICATION MANAGEMENT (02/18/18) MEDS MGMT FOR SUBSTANCE ABUSE TREATMENT, METHADONE MAINT (02/18/18) Family History: States: No Known Family Hx - Social History Hx Alcohol Use: Yes Hx Substance Use: Yes (heroin, cocaine, marijuana) - Immunization History Hx Tetanus Toxoid Vaccination: No Hx Influenza Vaccination: No Hx Pneumococcal Vaccination: No Review Of Systems Constitutional: Negative for: Fever, Chills Cardiovascular: Negative for: Chest Pain Respiratory: Negative for: Cough, Shortness of Breath Gastrointestinal: Negative for: Nausea, Vomiting, Abdominal Pain Neurological: Negative for: Weakness, Numbness Psych: Positive for: Depression, Suicidal ideation, Other (suicidal plan) Physical Exam - Physical Exam Appears: Well, Non-toxic, No Acute Distress, Other (flat affect) Skin: Warm, Dry Head: Normacephalic Eye(s): bilateral: Normal Inspection, PERRL, EOMI Oral Mucosa: Moist Neck: Supple Cardiovascular: Rhythm Regular Respiratory: Normal Breath Sounds, No Rales, No Rhonchi, No Wheezing Gastrointestinal/Abdominal: Normal Exam, Bowel Sounds, Soft, No Tenderness Neurological/Psych: Oriented x3 ED Course And Treatment - Laboratory Results Result Diagrams: 05/27/18 17:55 05/27/18 17:55 O2 Sat by Pulse Oximetry: 97 (RA) Pulse Ox Interpretation: Normal Progress Note: Blood work, UA, UDS ordered and reviewed. Patient medically cleared. 20:00- Patient accepted by Dr. Salgado for psychiatric admission. Disposition - Disposition Disposition: HOSPITALIZED Disposition Time: 20:00 Condition: STABLE - Clinical Impression Clinical Impression: Depression - Scribe Statement The provider has reviewed the documentation as recorded by the Scribe (Trevor Silvervi) Provider Attestation: All medical record entries made by the Scribe were at my direction and personally dictated by me. I have reviewed the chart and agree that the record accurately reflects my personal performance of the history, physical exam, medical decision making, and the department course for this patient. I have also personally directed, reviewed, and agree with the discharge instructions and disposition. Decision To Admit - Pt Status Changed To: Hospital Disposition Of: Inpatient - Admit Certification Admit to Inpatient:: After my assessment, the patient will require hospitalization for at least two midnights. This is because of the severity of symptoms shown, intensity of services needed, and/or the medical risk in this patient being treated as an outpatient. - InPatient: Physician Admission Certification: I certify that this patient requires 2 or more midnights of care for the following reason:: see notes - . Bed Request Type: Psychiatry Admitting Physician: Cristy Salgado Patient Diagnosis: Depression
[2018-05-27 18:04] LABS: SQUAMOUS EPITHIAL < 1 /hpf (0-5); URINE BILIRUBIN NEGATIVE (NEGATIVE); URINE BLOOD NEGATIVE (NEGATIVE); URINE CLARITY Clear (Clear); URINE COLOR Yellow (YELLOW); URINE GLUCOSE (UA) NORMAL (Normal); URINE LEUKOCYTE ESTERASE TRACE Leu/uL (Negative); URINE PROTEIN NEGATIVE (NEGATIVE); URINE UROBILINOGEN NORMAL mg/dL (0.2-1.0)
[2018-05-27 18:10] LABS: BASO % 0.8 % (0.0-2.0); EOS # 0.1 K/uL (0.0-0.7); EOS % 1.5 % (0.0-4.0); HEMOGLOBIN 13.7 g/dL (12.0-18.0); LYMPH # 1.4 K/uL (1.0-4.3); LYMPH % 21.9 % (20.0-40.0); MEAN CELL VOLUME 91.3 fL (80.0-94.0); MEAN CORPUSCULAR HEMOGLOBIN 31.6 pg (27.0-31.0); MEAN CORPUSCULAR HGB CONC 34.6 g/dL (33.0-37.0); MEAN PLATELET VOLUME 7.7 fL (7.2-11.7); MONO # 0.7 K/uL (0.0-0.8); MONO % 10.7 % (0.0-10.0); NEUT # 4.2 K/uL (1.8-7.0); NEUT % 65.1 % (50.0-75.0); RBC 4.33 Mil/uL (4.40-5.90); RED CELL DISTRIBUTION WIDTH 13.2 % (11.5-14.5); WHITE BLOOD COUNT 6.4 K/uL (4.8-10.8)
[2018-05-27 18:11] LABS: ALB/GLOB RATIO 1.2 (1.0-2.1); ALBUMIN 4.2 g/dL (3.5-5.0); ALT/SGPT 58 U/L (21-72); AST/SGOT 60 U/L (17-59); BLOOD UREA NITROGEN 14 mg/dL (9-20); CALCIUM 9.3 mg/dl (8.6-10.4); GFR NON-AFRICAN AMERICAN > 60
[2018-05-27 18:15] LABS: BARBITURATES, UR NEGATIVE (NEGATIVE); BENZODIAZEPINES, UR NEGATIVE (NEGATIVE)
[2018-05-27 18:18] LABS: OPIATES, UR POSITIVE (NEGATIVE); PHENCYCLIDINE, UR POSITIVE (NEGATIVE)
--- NOTE | 2018-05-27 22:04 | PCM.BM ---
<Laureen Lugo - Last Filed: 05/27/18 22:01> Treatment Plan Problems - Problems identified on initial assessmt depression Date Initiated: 05/27/18 Time Initiated: 22:02 Assessment reference: NA substance abuse Date Initiated: 05/27/18 Time Initiated: 22:02 Assessment reference: NA Treatment assets and liabiliti Patient Assests: good support system, negotiates basic needs, cognitively intact, cooperative, insightful, self-reliant, ADL independent, physically healthy Patient Liabilities: live alone, substance abuse <Shawna Alvarado - Last Filed: 05/29/18 10:26> Family Contact Family involvement: Famliy/SO not involved - Goals for Treatment Patient goals for treatment: "I need a rehab." Discharge/Continuing Care - Education Needs Education Needs: Patient Medication, Patient Coping Skills, Patient Placement options, Patient Community resources - Discharge Discharge Criteria: Tolerates medication w/o severe side effects, No longer exhibiting s/s of withdrawal Discharge to:: Substance Abuse Rehab - Treatment Team Participation Discussed with Family/SO: No Was Patient/Family/SO present at Treatment Team Meeting: Yes
--- NOTE | 2018-05-27 22:11 | PCM.BM ---
<Laureen Lugo M - Last Filed: 05/27/18 22:10> Treatment Plan Problems - Problems identified on initial assessmt depression Date Initiated: 05/27/18 Time Initiated: 22:02 Assessment reference: NA substance abuse Date Initiated: 05/27/18 Time Initiated: 22:02 Assessment reference: NA Treatment assets and liabiliti Patient Assests: good support system, negotiates basic needs, cognitively intact, cooperative, insightful, self-reliant, ADL independent, physically healthy Patient Liabilities: live alone, substance abuse - Milieu Protocol Maintain good personal hygiene: daily Encourage regular showers, daily Remind patient to perform daily oral care, daily Assist patient to perform ADL's Conduct patient checks and document Observation sheet: 1:1 Maintain personal safety: every shift Educate patient to report safety concerns to staff, every shift Monitor environment for contraband/sharps Medication safety: Monitor for expected outcome, potential side effects: every shift, Assess barriers to learning: every shift, Assess readiness for medication education: every shift <Cristy Salgado - Last Filed: 05/28/18 18:35> - Diagnosis (1) Alcohol abuse Status: Acute Interventions: 05/28/18 18:35 * Assess 7x/week regarding severity of withdrawal * Educate regarding risks, benefits, side effects and alternatives of medications * Use Motivational Interviewing for abstinence * Use CBT for relapse prevention * Medication management for withdrawal symptoms * Encourage medication assisted treatment * (2) Bipolar disorder Status: Acute Interventions: 05/28/18 18:36 * Assess/adjust medications daily and /or as needed * See patient on an individual basis 7x/week to assess level of manic behaviors and stability * Discuss risks, benefits, side effects and alternatives of medications * (3) Opioid use disorder, severe, dependence Status: Acute Interventions: 05/28/18 18:36 * Assess 7x/week regarding severity of withdrawal * Educate regarding risks, benefits, side effects and alternatives of medications * Use Motivational Interviewing for abstinence * Use CBT for relapse prevention * Medication management for withdrawal symptoms * Encourage medication assisted treatment * <Vinny Centeno M - Last Filed: 05/31/18 15:49> - Diagnosis (1) Major depressive disorder, recurrent severe without psychotic features Status: Acute Interventions: 05/31/18 15:49 * Assess/adjust medications daily and /or as needed * See patient on an individual basis 7x/week to assess level of manic behaviors and stability * Discuss risks, benefits, side effects and alternatives of medication (2) Personality disorder, unspecified Status: Acute Interventions: 05/31/18 15:49 * Assess/adjust medications daily and /or as needed * See patient on an individual basis 7x/week to assess level of manic behaviors and stability * Discuss risks, benefits, side effects and alternatives of medication (3) Opioid use disorder, severe, dependence Status: Acute Interventions: 05/31/18 15:48 * Assess 7x/week regarding severity of withdrawal * Educate regarding risks, benefits, side effects and alternatives of medicat ions * Use Motivational Interviewing for abstinence * Use CBT for relapse prevention * Medication management for withdrawal symptoms * Encourage medication assisted treatment (4) Alcohol use disorder, moderate, dependence Status: Acute Interventions: 05/31/18 15:48 * Assess 7x/week regarding severity of withdrawal * Educate regarding risks, benefits, side effects and alternatives of medications * Use Motivational Interviewing for abstinence * Use CBT for relapse prevention * Medication management for withdrawal symptoms * Encourage medication assisted treatment
[2018-05-27] MEDS ORDERED: Aluminum Hydroxide/Magnesium Hydroxide Susp (30 mL) PO PRN (23:13)
--- NOTE | 2018-05-28 12:28 | PCM.PSYCH ---
Initial Psychiatric Evaluation - Initial Psychiatric Evaluation Type of Admission: Voluntary Legal Status: Capacity Chief Complaint (in patient's own words): "I was suicidal" History of Present Illness and Precipitating Events: The patient is a 37 y/o male who is unemployed from a ho job, stays with family on and off, and single with no children. He has a fiance who he lives with sometimes. He is known from previous many admissions. He states that he was depressed for a long time and has had a previous suicide attempt. He complains of constant anxiety. He reports several depressive sxs. He claims he is not suicidal now or having manic/psychotic features. He has no intention or plan to hurt himself now but he thinks about it b/c he feels hopeless about his drug use. in ER he was offered detox admission but he requested psych b/c he was not feeling safe about his suicidality. He states that he used to shoot 20 bags of heroin a day for the past 20 years on and off. He also states that he shoots or smokes cocaine, smokes a pack of cigarettes a day, and drinks alcohol sometimes "too much" for the past 20 years. He also used PCP in the past. He denies other drugs. He has experienced blackouts and seizures in the past. He says that his longest sobriety was when he was in long term for 5 years. He was going to a methadone clinic ([facility]) but stopped. He has relapsed and using 10-20 bags iv He drinks alcohol too but has questionable wdw symptoms Past medical history: denies Past psych history: Suicide attempt and 3-4 admissions in psych Family psych history: Father committed suicide Current Medications: Active Medications Generic Name Dose Route Start Last Admin Trade Name Freq PRN Reason Stop Dose Admin Al Hydrox/Mg Hydrox/Simethicone 30 ml 05/27/18 23:13 05/28/18 12:01 Maalox 30 Ml PO 30 ml TID PRN Administration Indigestion / Heartburn Clonidine HCl 0.1 mg 05/27/18 23:13 Catapres PO Q4 PRN COWS Score More or Equal to 5 Hydroxyzine HCl 50 mg 05/27/18 23:15 Atarax PO Q6H PRN Anxiety Ibuprofen 600 mg 05/27/18 23:13 Motrin Tab PO Q6 PRN Pain, moderate (4-7) Loperamide HCl 2 mg 05/27/18 23:13 Imodium PO Q8 PRN Diarrhea Mirtazapine 15 mg 05/28/18 22:00 Remeron PO HS ALYSE Ondansetron HCl 4 mg 05/27/18 23:13 05/28/18 12:00 Zofran Tab PO 4 mg Q8 PRN Administration Nausea/Vomiting Trazodone HCl 100 mg 05/27/18 23:15 Desyrel PO HS PRN Insomnia Past Psychiatric History - Past Psychiatric History Previous Treatment History: Inpatient Pertinent Medical Hx (Current Medical&Sleep Prob, Allergies): Allergies Allergy/AdvReac Type Severity Reaction Status Date / Time No Known Allergies Allergy Verified 03/29/18 02:32 No Known Home Med 02/18/18 Review of Systems - Psychiatric Psychiatric: Abnormal Sleep Pattern, Anhedonia, Anxiety, Change in Appetite, Dep ression, Difficulty Concentrating. absent: Hallucinations, Homicidal Ideation, Suicidal Ideation Mental Status Examination - Personal Presentation Personal Presentation: Looks stated age - Affect Affect: Constricted - Motor Activity Motor Activity: Calm - Reliability in Providing Information Reliability in Providing Information: Good - Speech Speech: Organized - Mood Mood: Depressed - Formal Thought Process Formal Thought Process: No Impairment - Cognitive Functions Orientation: Person, Place, Situation, Time Sensorium: Alert Attention/Concentration: Attentive Estimate of Intelligence: Average Judgement: Intact, as evidence by: Insight regarding need for hospitalization Memory: Recent intact, as evidence by: Ability to recall events of the day, Remote intact, as evidenced by: Abilit to recall sig. life events - Risk Risk: Withdrawal, Diminished functioning - Strength & Assets Inventory Strength & Assets Inventory: Cooperative - Limitations Limitations: Other DSM 5 DX - DSM 5 DSM 5 Diagnosis: Major depressive disorder, severe, recurrent, without psychosis Opioid use disorder, severe Opioid withdrawal Alcohol use d/o - severe Personality d/o unspecified - Recommended/Plan of Treatment Treatment Recommendations and Plan of Treatment: Methadone detox Remeron for depression As needed Benadryl for sleep Other as needed medications Gabapentin for augmentation if needed All risks, benefits and alternatives of medications, including no medications, discussed and the patient understood and agreed. Attend groups and activities Supportive therapy and psychoeducation [place] for abstinence CBT for relapse prevention Encourage MAT Refer to rehab or IOP Attend self-help groups as well [place] for smoking cessation and patch if needed 33 min Projected ELOS: 5 days Prognosis: good w treatment
--- NOTE | 2018-05-29 12:28 | PCM.PYCHPN ---
Psychiatric Progress Note - Psychiatric Progress Note Patient seen today, length of contact: 15 minutes Patient Chief Complaint: I am not feeling better. I am withdrawing from heroine. Problems Identified/Issues Discussed: Patient seen, chart reviewed, case discussed with the staff. Patient is related to illness and treatment were discussed with the patient and staff. Patient was evaluated with team. Reported compliant with treatment with no adverse effects. Tolerating treatment very well. Reported not feeling better. As patient still has some withdrawal symptoms including nausea, body aches, abdominal cramps and weakness. Mood reported as anxious. Affect appropriate. Aftercare discussed with the patient. Patient needs more time for stabilization. Patient denied any suicidal or homicidal ideation at the time of evaluation. Medical Problems: None reported. Diagnostic Results: Reviewed Medication Change: No Medical Record Reviewed: Yes Mental Status Examination - Cognitive Function Orientation: Person, Place, Situation, Time Memory: Intact Attention: WNL Concentration: WNL Association: WN Fund of Knowledge: [facility] Decription of patient's judgement and insights: Fair - Mood Mood: Anxious - Affect Affect: Other (Appropriate) - Speech Speech: Appropriate - Formal Thought Process Formal Thought Process: No Impairment Psychotic Thoughts and Behaviors: None - Suicidal Ideation Suicidal Ideation: No - Homicidal Ideation Homicidal Ideation: No Goal/Treatment Plan - Goal/Treatment Plan Need for Continued Stay: Remain at risks for inpatient hospitalization, Discharge may exacerbated symptoms, Severe functional impairment Progress Toward Problem(s) and Goals/Treatment Plan: Patient education. Supportive therapy. CBT for relapse prevention. [place] for abstinence. Continue treatment as before. Patient wants to go to [facility] after discharge from the hospital for follow-up care. Estimated Date of D/C: 06/02/18 - Smoking Cessation Smoking Cessation Initiated: No
[2018-05-30 08:24] VITALS: O2SAT 97
--- NOTE | 2018-05-30 13:37 | RAD ---
Date of service: 05/30/2018 PROCEDURE: CHEST RADIOGRAPH, 1 VIEW HISTORY: to enter Rehab. COMPARISON: None available. FINDINGS: LUNGS: The lungs are well inflated and clear. PLEURA: No pneumothorax or pleural effusion. CARDIOVASCULAR: The heart is normal in size. No aortic atherosclerotic calcifications present. OSSEOUS STRUCTURES: Within normal limits for the patient's age. VISUALIZED UPPER ABDOMEN: Normal. OTHER FINDINGS: None. IMPRESSION: No active pulmonary disease.
--- NOTE | 2018-05-30 18:49 | PCM.PYCHPN ---
Psychiatric Progress Note - Psychiatric Progress Note Patient seen today, length of contact: 15 minutes Patient Chief Complaint: I am feeling little better. Problems Identified/Issues Discussed: Patient seen, chart reviewed, case discussed with the staff. Patient is related to illness and treatment were discussed with the patient and staff. Patient was evaluated with team. Reported compliant with treatment with no adverse effects. Tolerating treatment very well. Reported feeling little better. As patient still has some withdrawal symptoms including nausea, body aches, abdominal cramps and weakness. Mood reported as anxious. Affect appropriate. Aftercare discussed with the patient. Patient needs more time for stabilization. Patient denied any suicidal or homicidal ideation at the time of evaluation. Medical Problems: None reported. Diagnostic Results: Reviewed DSM 5 Symptoms Update: Some improvement with treatment Medication Change: No Medical Record Reviewed: Yes Mental Status Examination - Cognitive Function Orientation: Person, Place, Situation, Time Memory: Intact Attention: WNL Concentration: WNL Association: [facility] Fund of Knowledge: [facility] Decription of patient's judgement and insights: Fair - Mood Mood: Anxious - Affect Affect: Other (Appropriate) - Speech Speech: Appropriate - Formal Thought Process Formal Thought Process: No Impairment Psychotic Thoughts and Behaviors: None - Suicidal Ideation Suicidal Ideation: No - Homicidal Ideation Homicidal Ideation: No Goal/Treatment Plan - Goal/Treatment Plan Need for Continued Stay: Remain at risks for inpatient hospitalization, Discharge may exacerbated symptoms, Severe functional impairment Progress Toward Problem(s) and Goals/Treatment Plan: Patient education. Supportive therapy. CBT for relapse prevention. [place] for abstinence. Continue treatment as before. Patient wants to go to [facility] after discharge from the hospital for follow-up care. Estimated Date of D/C: 06/02/18 - Smoking Cessation Smoking Cessation Initiated: No
[2018-05-31 06:57] VITALS: RESP 18
--- NOTE | 2018-05-31 15:53 | PCM.PYCHPN ---
Psychiatric Progress Note - Psychiatric Progress Note Patient seen today, length of contact: 15 minutes Patient Chief Complaint: I am feeling better than yesterday. Problems Identified/Issues Discussed: Patient seen, chart reviewed, case discussed with the staff. Patient is related to illness and treatment were discussed with the patient and staff. Patient was evaluated with team. Reported compliant with treatment with no adverse effects. Tolerating treatment very well. Reported feeling better than yesterday. Patient still has some withdrawal symptoms including nausea, body aches, abdominal cramps and weakness but less than before. Mood reported as anxious. Affect appropriate. Aftercare discussed with the patient. Patient needs more time for stabilization. Patient denied any suicidal or homicidal ideation at the time of evaluation. Medical Problems: None reported. Diagnostic Results: Reviewed DSM 5 Symptoms Update: Some improvement with treatment. Medication Change: No Medical Record Reviewed: Yes Mental Status Examination - Cognitive Function Orientation: Person, Place, Situation, Time Memory: Intact Attention: WNL Concentration: WNL Association: WNL Fund of Knowledge: WN Decription of patient's judgement and insights: Fair - Mood Mood: Anxious (Less than before) - Affect Affect: Other (Appropriate) - Speech Speech: Appropriate - Formal Thought Process Formal Thought Process: No Impairment Psychotic Thoughts and Behaviors: None - Suicidal Ideation Suicidal Ideation: No - Homicidal Ideation Homicidal Ideation: No Goal/Treatment Plan - Goal/Treatment Plan Need for Continued Stay: Remain at risks for inpatient hospitalization, Discharge may exacerbated symptoms, Severe functional impairment Progress Toward Problem(s) and Goals/Treatment Plan: Patient education. Supportive therapy. CBT for relapse prevention. [place] for abstinence. Continue treatment as before. Patient will go to [facility], [facility] after discharge from the hospital for follow-up care. Estimated Date of D/C: 06/02/18 - Smoking Cessation Smoking Cessation Initiated: No
[2018-06-01 06:53] VITALS: BP 100/60; PULSE 82; TEMP 97.9
--- NOTE | 2018-06-01 09:37 | PCM.PYCHDC ---
Mental Status Examination - Mental Status Examination Orientation: Person, Place, Situation, Time Memory: Intact Mood: Neutral Affect: Other (Appropriate) Speech: Appropriate Attention: WNL Concentration: WNL Association: WNL Fund of Knowledge: WNL Formal Thought Process: No Impairment Description of patient's judgement and insight: Fair Psychotic Thoughts and Behaviors: None Suicidal Ideation: No Current Homicidal Ideation?: No Discharge Summary - Discharge Note Reason for Hospitalization: Major depressive disorder, severe, recurrent, without psychosis Opioid use disorder, severe Opioid withdrawal Alcohol use d/o - severe Personality d/o unspecified Consultations:: List each consultation separately and include: 1. Reason for request. 2. Findings. 3. Follow-up Summary of Hospital Course include:: 1. Description of specific treatment plan utilized for patients during their course of treatmen. 2. Summarize the time- course for resolution of acute symptoms and/or regressed behaviors. 3. Describe issues identified and worked on during hospitalization. 4. Describe medication utilized. 5. Describe medical problems identified and treated. 6. Reassessment of suicide risk Summary of Hospital Course: The patient is a 37 y/o male who is unemployed from a ho job, stays with family on and off, and single with no children. He has a fiance who he lives with sometimes. He is known from previous many admissions. He states that he was depressed for a long time and has had a previous suicide attempt. He complains of constant anxiety. He reports several depressive sxs. He claims he is not suicidal now or having manic/psychotic features. He has no intention or plan to hurt himself now but he thinks about it b/c he feels hopeless about his drug use. in ER he was offered detox admission but he r equested psych b/c he was not feeling safe about his suicidality. He states that he used to shoot 20 bags of heroin a day for the past 20 years on and off. He also states that he shoots or smokes cocaine, smokes a pack of cigarettes a day, and drinks alcohol sometimes "too much" for the past 20 years. He also used PCP in the past. He denies other drugs. He has experienced blackouts and seizures in the past. He says that his longest sobriety was when he was in alf for 5 years. He was going to a methadone clinic ([facility]) but stopped. He has relapsed and using 10-20 bags iv He drinks alcohol too but has questionable wdw symptoms Past medical history: denies Past psych history: Suicide attempt and 3-4 admissions in psych Family psych history: Father committed suicide During his stay in the hospital patient was started on methadone taper for opiate withdrawal symptoms. Patient was also started on escitalopram and Seroquel plus other as needed medications. Patient was also attending groups and other activities on the unit. With the above treatment patient started feeling better, today patient was stable, had no withdrawal symptoms and was ready to discharge from the hospital. At the time of evaluation and discharge, patient was awake, alert and oriented x3, had no delusions, no auditory or visual hallucinations, no suicidal ideations or homicidal ideations. Patient was discharged in a stable condition. - Diagnosis (1) Major depressive disorder, recurrent severe without psychotic features Current Visit: Yes Status: Acute (2) Personality disorder, unspecified Current Visit: Yes Status: Acute (3) Opioid use disorder, severe, dependence Current Visit: Yes Status: Acute (4) Alcohol use disorder, moderate, dependence Current Visit: Yes Status: Acute - Final Diagnosis (DSM 5) Condition upon Discharge: STABLE Disposition: HOME/ ROUTINE Follow-up Treatment Plan: Patient will go to [facility] after discharge from the hospital for follow-up care. Prescriptions/Medication Reconciliation: Escitalopram [Lexapro] 10 mg PO DAILY #30 tab QUEtiapine [Seroquel] 100 mg PO HS #30 tab traZODone [Desyrel] 100 mg PO HS PRN #30 tab PRN Reason: Insomnia - Smoking Cessation Smoking Cessation Medication prescribed: No - Antipsychotic Medications Pt discharged on 2 or more routine antipsychotic medications: No
== END 2018-06-01 10:50 | disposition home or self-care (01) | DRG 751 ==
LOC: C.ER 17:16 → C.5E 20:02
PROVIDERS: ADMIT Psychiatry & Neurology Psychiatry; ATTEND Psychiatry & Neurology Psychiatry
PROC: GZ3ZZZZ Medication Management (ICD-10-PCS; principal; 2018-05-27)
PROC: HZ2ZZZZ Detoxification Services for Substance Abuse Treatment (ICD-10-PCS; 2018-05-27)
PROC: HZ81ZZZ Medication Management for Substance Abuse Treatment, Methadone Maintenance (ICD-10-PCS; 2018-05-27)
PROC: GZHZZZZ Group Psychotherapy (ICD-10-PCS; 2018-05-27)
PROC: GZ56ZZZ Individual Psychotherapy, Supportive (ICD-10-PCS; 2018-05-27)
DX: F33.2 Major depressive disorder, recurrent severe without psychotic features (principal); R45.851 Suicidal ideations; F11.23 Opioid dependence with withdrawal; F10.20 Alcohol dependence, uncomplicated; F14.90 Cocaine use, unspecified, uncomplicated; F17.210 Nicotine dependence, cigarettes, uncomplicated; F60.9 Personality disorder, unspecified; F31.9 Bipolar disorder, unspecified; F41.9 Anxiety disorder, unspecified; Y90.5 Blood alcohol level of 100-119 mg/100 ml; Z91.5 Personal history of self-harm